=== PATIENT | male | born 1975 | race Caucasian/White ===

== ENCOUNTER 2025-02-15 15:02 | Emergency (ER) | payer OTHER, SELFPAY ==
--- NOTE | ~2025-02-15 | XR_ITS ---
HISTORY: dorsal tarsal pain/swelling- dropped mower onto foot COMPARISON: None TECHNIQUE: 3 views of the left foot were performed FINDINGS: Avulsion fracture over the dorsal margin of the metatarsal/cuneiform border (at the Lisfranc joint) w ith overlying soft tissue swelling. No significant degenerative disease is noted. The base of the fifth metatarsal is intact. No calcaneal spur is noted. IMPRESSION: 3 mm avulsion fracture of the dorsal margin of the metatarsal/cuneiform border (at the L isfranc joint) with overlying soft tissue swelling. Reviewed, dictated and finalized at location A. IMPRESSION: 3 mm avulsion fracture of the dorsal margin of the metatarsal/cune iform border (at the Lisfranc joint) with overlying soft tissue swelling.
--- NOTE | 2025-02-15 15:06 | ED.LOWEXIN ---
HPI - Extremity Injury (Lower) General Chief Complaint: Extremity Injury, Lower Stated Complaint: left foot injury Time Seen by Provider: 02/15/25 15:06 Source: patient Mode of arrival: ambulatory Limitations: no limitations History of Present Illness HPI Narrative: Mayur is a 49-year-old male patient presenting to the clinic today with complaints of left foot injury x2 weeks. He reports he was cleaning out a push mower and and was setting the more upright when thumb over landed on top of his left foot. Has been having pain and swelling to the left foot. States the pain was initially to the dorsal foot but is now into the arch and heel of his foot and around his ankle. Has not taken any medications for his symptoms. Rates pain 01/12 currently Related Data Home Medications ?Medication ?Instructions ?Recorded ?Confirmed ?Last Taken ?Type acamprosate 333 mg tablet,delayed mg PO 02/15/25 Unknown History release escitalopram oxalate 20 mg tablet mg 02/15/25 Unknown History naltrexone microspheres 380 mg mg IM 02/15/25 Unknown History intramuscular suspension,extended release (Vivitrol) Allergies Allergy/AdvReac Type Severity Reaction Status Date / Time No Known Allergies Allergy Verified 02/15/25 15:11 Review of Systems Review of Systems: Pertinent positives per HPI. Patient denies any fever, chills, rash, headache, visual changes, dizziness, cough, shortness of breath, chest pain, palpitations, nausea, vomiting, diarrhea, constipation, abdominal pain, or any urinary issues. PMFSH Comments At the time of my signature, I reviewed and agree with the nursing past medical, surgical, social, and family history. There is no relevant family history pertinent to the patient complaint. Exam Narrative: General: Well-developed, well nourished, in no apparent distress Head: Normocephalic, atraumatic. Cardio: Regular rate and rhythm, s1 and s2 normal, no murmur appreciated. Resp: Clear to auscultation bilaterally, no rhonchi, rales, wheezing or rubs. Musculoskeletal: No deformity, left foot swelling when compared to the right, tenderness to palpation over the dorsal foot and as well as over the arch and heel of the foot and pain to the lower medial ankle, grossly normal range of motion, muscle strength strong and equal, peripheral pulse strong, no edema, no cyanosis, normal gait and station Course Course Emergency Course: Portions of this record may have been created with voice recognition software. Level of Care: Express Care Visit Vital Signs Vital signs: Vital Signs Temperature 36.6 C 02/15/25 15:09 Pulse Rate 97 02/15/25 15:09 Respiratory Rate 16 02/15/25 15:09 Blood Pressure 121/75 02/15/25 15:09 Pulse Oximetry 99 02/15/25 15:09 Oxygen Delivery Room Air 02/15/25 15:09 Temperature 36.6 C 02/15/25 15:09 Pulse Rate 97 02/15/25 15:09 Respiratory Rate 16 02/15/25 15:09 Blood Pressure 121/75 02/15/25 15:09 Pulse Oximetry 99 02/15/25 15:09 Oxygen Delivery Room Air 02/15/25 15:09 Vital signs reviewed MDM - Extremity Injury (Lower) MDM Narrative Medical decision making narrative: At the time of visit patient is resting comfortably on the exam table. Patient appears to be nontoxic. Complaints of left foot injury x2 weeks. He reports he was cleaning out a push mower and and was setting the more upright when thumb over landed on top of his left foot. Has been having pain and swelling to the left foot. States the pain was initially to the dorsal foot but is now into the arch and heel of his foot and around his ankle. Has not taken any medications for his symptoms. Rates pain 7/10 currently. Exam patient has left foot swelling when compared to the right, tenderness to palpation over the dorsal foot and as well as over the arch and heel of the foot and pain to the lower medial ankle. X-ray of the left foot was ordered Diagnostics: X-ray of the left foot was performed and shows a 3 mm avulsion fracture of the dorsal margin of the metatarsal/cuneiform blood with overlying soft tissue swelling. Plan: Patient has avulsion fracture to the metatarsal of the left foot. Postop shoe and Amadou wrap was ordered. Sensation, circulation, motion within normal limits after application of the Amadou wrap. Will have patient follow-up with Dr. Kirby. Supportive measures were discussed with the patient and they voiced understanding discharge instructions and agrees to treatment plan. Return precautions reviewed Differential Diagnosis Differential diagnosis: Likely fracture of toe and other (Foot fracture) Discharge Plan Discharge Clinical Impression: Avulsion fracture of metatarsal bone Qualifiers: Encounter type: initial encounter Fracture type: closed Laterality: left Qualified Code(s): S92.302A - Fracture of unspecified metatarsal bone(s), left foot, initial encounter for closed fracture Patient Disposition: Home Condition: Stable Instructions: Antibiotic Form, Foot Fracture in Adults (ED) Additional Instructions: X-ray shows a 3 mm avulsion fracture of the dorsal margin of the meta tarsal/cuneiform border with overlying soft tissue swelling. Rest, ice, elevate, wear Amadou wrap, and postop shoe as directed Tylenol/motrin for pain as discussed. Gradually bear weight No running or sports until healed. Follow up with your PCP if symptoms persist more than 1 week. Follow-up with Dr. [id number] office tomorrow to schedule appointment Patient Language: Greenlandic Prescriptions: No Action escitalopram oxalate 20 mg tablet acamprosate 333 mg tablet,delayed release (DR/EC) PO Vivitrol 380 mg suspension,extended rel recon IM Follow-up/Referrals: Chintan Coel MD [Primary Care Provider] - Nuno Larry MD [Physician] - 1 Day (Left foot- 3 mm avulsion fracture of the dorsal margin of the metatarsal/cuneiform border at the Lisfranc joint with overlying soft tissue swelling) Time of Disposition: 15:41 Quality NIHSS Nursing Documentation ED NIHSS nursing documentation: reviewed/agree
[2025-02-15 15:09] VITALS: BP 121/75; PULSE 97; RESP 16; TEMP 36.6; O2SAT 99
--- OUTSIDE RECORDS SUMMARY | 2025-02-15 15:09 | XMS_ITS | Clinical Summary ---
Author Organization [facility] Address [address] [place] [address] Phone Care Team Providers Care Community Service Technician Name Role Phone Chintan Cole MD Primary Care Provider [phone] Allergies No known active allergies Medications * This document contains information received from the source organization and may not represent a complete record from that organization. hydrOXYzine (ATARAX) 50 MG Tablet Take 50 mg by mouth every 6 hours as needed for Anxiety. Active escitalopram (LEXAPRO) 20 MG TabletIndicatio ns:Generalized Anxiety Disorder Take 1 Tablet by mouth daily. Indications: Generalized Anxiety Disorder 90 Tablet 5 Active folic acid (FOLVITE) 1 MG Tablet Take 1 Tablet by mouth daily. 30 Tablet 5 Active methocarbamol (ROBAXIN) 750 MG Tablet Take 1 Tablet by mouth 3 times daily as needed for Other (For muscle aches). 90 Tablet 5 Active nicotine polacrilex (NICORETTE) 2 MG Gum Take 1 Each by mouth every 4 hours as needed for Smoking cessation. 100 gum 5 Active chlordiazePOXID E (LIBRIUM) 10 MG CapsuleIndicati ons:Anxiety and depression Take 1 Capsule by mouth 3 times daily as needed for Withdrawal or Anxiety. 90 Capsule 5 Active Active Problems Problem Noted Date Diagnosed Date Tobacco dependence 12/02/2024 Alcohol withdrawal 11/29/2024 Alcohol dependence 11/19/2023 Seizure 11/19/2023 Insomnia 11/19/2023 Anxiety 11/19/2023 Depression 11/19/2023 Alcohol related seizure Overview (11/29/2024): x1 Tobacco abuse Anxiety and depression Resolved Problems Problem Noted Date Diagnosed Date Resolved Date Alcohol withdrawal syndrome with complication 11/19/19 24 11/22/2023 Hyperbilirubinemia 11/19/2023 Transaminitis 11/19/2023 11/22/2023 Hyponatremia 11/19/2023 11/22/2023 Encounters * This document contains information received from the source organization and may not represent a complete record from that organization. Date Type Department Care Team Description 12/19/2024 Travel 12/13/2024 Transcribe Orders [facility] [address] [place] [address] Chintan Cole MD Abnormal LFTs (liver function tests) (Primary Dx) 11/29/2024 Travel from Last 3 Months Family History Medical History Relation Name Comments No Known Problems Father Arthritis Mother Diabetes Mother Hypertension Mother Relation Name Status Comments Father Alive Mother Alive Social History Tobacco Use Types Packs/Day Years Used Date Smoking Tobacco: Every Day Cigarettes 1 35.2 Started: 12/09/1989 Smokeless Tobacco: Former Chew Tobacco Cessation:Ready to Q uit: Not Asked; Counseling Given: Not Answered Alcohol Use Standard Drinks/Week Comments Yes 125 (1 standard drink = 0.6 oz p ure alcohol) last drink 11/29 AM [facility] Utilities Answer Date Recorded In the past 12 months has [employer], gas, oil, or water [employer] threatened to shut off services in your home? Patient declined 11/29/2024 Social Connection and Isolation Panel Answer Date Recorded In a typical week, how many times do you talk on the phone with family, friends, or neighbors? Patient declined 11/29/2024 How often do you get togethe r with friends or relatives? Patient declined 11/29/2024 How often do you attend muslim or church serv ices? Patient declined 11/29/2024 Do you belong to any clubs o r organizations such as muslim groups, unions, fraternal or athletic groups, or school groups? Patient declined 11/29/2024 How often do you attend meet ings of the clubs or organizations you belong to? Patient declined 11/29/2024 Are you , , di vorced, , never , or living with a partner? Patient declined 11/29/2024 AUDIT-C Answer Date Recorded Q1: How often do you have a drink containing alc ohol? Patient declined 11/29/2024 Q2: How many drinks containi ng alcohol do you have on a typical day when you are drinking? Patient declined 11/29/2024 Q3: How often do you have si x or more drinks on one occasion? Patient declined 11/29/2024 Overall Financial Resource Strain (CARDIA) Answe r Date Recorded How hard is it for you to pa y for the very basics like food, housing, medical care, and heating? Patient declined 11/29/2024 [facility] - Occupational Stress Questionnaire Answer Date Recorded Do you feel stress - tense, restless, nervous, or anxious, or unable to sleep at night because your mind is troubled all the time - these days? Patient declined 11/29/2024 Exercise Vital Sign Answer Date Recorde d On average, how many days pe r week do you engage in moderate to strenuous exercise (like a brisk walk)? Patient declined On average, how many minutes do you engage in exercise at this level? Patient declined 11/29/2024 Hunger Vital Sign Answer Date Recorded Within the past 12 months, y ou worried that your food would run out before you got the money to buy more. Patient declined Within the past 12 months, t he food you bought just didn't last and you didn't have money to get more. Patient declined PRAPARE - Transportation Answer Date Re corded In the past 12 months, has l ack of transportation kept you from medical appointments or from getting medications? Patient declined 11/29/2024 In the past 12 months, has l ack of transportation kept you from meetings, work, or from getting things needed for daily living? Patient declined 11/29/2024 Housing Stability Vital Sign Answer Jone e Recorded In the last 12 months, was t here a time when you were not able to pay the mortgage or rent on time? Yes 11/19/2023 In the last 12 months, how many places have you lived? 1 11/19/2023 In the last 12 months, was t here a time when you did not have a steady place to sleep or slept in a jail (including now)? No 11/19/2023 Housing Stability Vital Sign Answer Jone e Recorded In the last 12 months, was t here a time when you were not able to pay the mortgage or rent on time? Patient declined 11/30/19 25 In the past 12 months, how m any times have you moved where you were living? 1 11/29/2024 At any time in the past [address] [facility], were you homeless or living in a jail (including now)? Patient declined 11/29/2024 Sexually Active Control Partners Comments Yes Female Sex and Gender Information Value Date Recorded Sex Assigned at Male 11/17/2023 5:26 PM CDT Legal Sex Male 8:27 PM CDT Gender Identity Male 11/17/2023 5:26 PM CDT Sexual Orientation Not on file Last Filed Vital Signs Vital Sign Reading Time Taken Comments Blood Pressure 109/64 12/02/2024 7:23 AM CDT Pulse 69 12/02/2024 7:23 AM CDT Temperature 36.1 C (97 F) 12/02/2024 7:23 AM CDT Respiratory Rate 20 12/02/2024 7:23 AM CDT Oxygen Saturation 98% 12/02/2024 7:23 AM CDT Inhaled Oxygen Concentration - - Weight 80.7 kg (178 lb) 11/29/2024 2:26 PM CDT Height 185.4 cm (6' 1) 11/29/2024 2:26 PM CDT Body Mass Index 23.48 11/29/2024 2:26 PM CDT Plan of Treatment Health Maintenance Due Date Last Done Comments Hepatitis C Virus (HCV) Screening 1975 TdaP Immunization 1975 Hepatitis B Immunization (1 of 3 - 19+ 3-dose series) 12/22/1994 Pneumococcal Immunization Co mbined (1 of 2 - PCV) 12/22/1994 Cologuard 12/22/2020 Colonoscopy 12/22/2020 Colorectal Cancer Screening 12/22/2020 Immunochemical Fecal Occult Blood 12/22/2020 SARS-COV-2 Immunization ( - season) 2024 Influenza Immunization (#1) 2025 Respiratory Syncytial Virus (RSV) Immunization (Adult) (1 - 1-dose 75+ series) 12/22/2050 Human Papillomavirus (HPV) Immunization Aged Out No longer eligible b ased on patient's age to complete this topic Meningococcal Immunization (ACWY) Aged Out No longer eligible based on patient's age to complete this topic Rotavirus Immunization Aged Out No lo nger eligible based on patient's age to complete this topic Procedures Procedure Name Priority Date/Time Associated Diagnosis Comments RHYTHM STRIP 12/01/2024 12:00 AM CDT RHYTHM STRIP 12/01/2024 12:00 AM CDT RHYTHM STRIP 12/01/2024 12:00 AM CDT URINALYSIS (UA) MACROSCOPIC Routine 11/30/2024 2:04 PM CDT URINE DRUG SCREEN Routine 11/30/2024 2:0 4 PM CDT RHYTHM STRIP 11/30/2024 12:00 AM CDT RHYTHM STRIP 11/30/2024 12:00 AM CDT RHYTHM STRIP 11/30/2024 12:00 AM CDT EKG 12 LEAD Stat with Interpretation 11/29/2024 4:44 PM CDT GOLD TOP TUBE Routine 11/29/2024 1:38 PM CDT CBC WITH AUTO DIFFERENTIAL Routine 11/29/2024 1:38 PM CDT EXTRA TUBES Routine 11/29/2024 1:38 PM CDT AMYLASE Routine 11/29/2024 1:38 PM CDT MAGNESIUM (MG) Routine 11/29/2024 1:38 PM CDT PHOSPHORUS (PO4) Routine 11/29/2024 1:38 PM CDT LIPASE Routine 11/29/2024 1:38 PM CDT ETHYL ALCOHOL (ETHANOL) Routine 11/29/2024 1:38 PM CDT PROTIME (PT) (PROTHROMBIN TIME) Routine 11/29/2024 1:38 PM CDT CMP (COMPREHENSIVE METABOLIC PANEL) Routine 11/29/2024 1:38 PM CDT COMPLETE BLOOD COUNT (CBC) WITH DIFF Routine 11/29/2024 1:38 PM CDT EKG SCAN 11/29/2024 12:00 AM CDT RHYTHM STRIP 11/29/2024 12:00 AM CDT RHYTHM STRIP 11/29/2024 12:00 AM CDT from Last 3 Months Results * RHYTHM STRIP (12/01/2024 12:00 AM CDT) Only the most recent of8 resultswithin the time period is included. 12/01/2024 us Provider Scan IMG ECG ORDERABLES Final Result RESULTING AGENCY * (ABNORMAL) URINALYSIS (UA) MACROSCOPIC (11/30/2024 2:04 PM CDT) SPECIFIC GRAVITY 1.015 1.003 - 1.030 11/30/2024 2:34 PM CDT [facility] URINE PH 7.0 5.0 - 9.0 11/30/2024 2:34 PM CDT [facility] WBC ESTERASE Negative Negative 11/30/2024 2:34 PM CDT [facility] NITRITE Negative Negative 11/30/2024 2:34 PM CDT [facility] PROTEIN, RANDOM URINE 15 mg/dL(A) Negative 11/30/2024 2:34 PM CDT [facility] URINE GLUCOSE, QUAL Negative Negative 11/30/2024 2:34 PM CDT [facility] URINE KETONES 5 mg/dL(A) Negative 11/30/2024 2:34 PM CDT [facility] UROBILINOGEN Normal Normal mg/dL 11/30/2024 2:34 PM CDT [facility] URINE BLOOD Negative Negative aguilar/ul 11/30/2024 2:34 PM CDT [facility] URINALYSIS COLOR Dark Yellow 025 2:34 PM CDT [facility] URINALYSIS CLARITY Clear 11/30/2024 2:34 PM CDT [facility] Urine Non-Phlebotomy Collection / Unknown 11/30/2024 2:04 PM CDT 11/30/2024 2:31 PM CDT us Jose Lemus FRONT OF HOUSE MANAGER, MANUFACTURING TEAM LEADER URINE ORDERABLES Final Result [facility] [address] [place] [address] * (ABNORMAL) URINE DRUG SCREEN (11/30/2024 2:04 PM CDT) UR AMPHETAMINE NON DETECTED NON DETECTED 11/30/2024 2:45 PM CDT [facility] Comment: FOR MEDICAL USE ONLY. CUTOFF CONCENTRATION FOR DETECTED RESULT: AMPHETAMINE: 500 NG/ML UR BENZODIAZEPINES DETECTED(A) NON DETECTED 11/30/2024 2:45 PM CDT [facility] Comment: FOR MEDICAL USE ONLY. CUTOFF CONCENTRATION FOR DETECTED RESULT: BENZODIAZAPINE: 200 NG/ML UR COCAINE METABOLITE NON DETECTED NON DETECTED 11/30/2024 2:45 PM CDT [facility] Comment: FOR MEDICAL USE ONLY. CUTOFF CONCENTRATION FOR DETECTED RESULT: COCAINE: 150 NG/ML UR OPIATES NON DETECTED NON DETECTED 11/30/2024 2:45 PM CDT [facility] Comment: FOR MEDICAL USE ONLY. CUTOFF CONCENTRATION FOR DETECTED RESULT: OPIATES: 300 NG/ML UR PHENCYCLIDINE NON DETECTED NON DETECTED 11/30/2024 2:45 PM CDT [facility] Comment: FOR MEDICAL USE ONLY. CUTOFF CONCENTRATION FOR DETECTED RESULT: PCP: 25 NG/ML UR CANNABINOID DETECTED(A) NON DETECTED 11/30/2024 2:45 PM CDT [facility] Comment: FOR MEDICAL USE ONLY. CUTOFF CONCENTRATION FOR DETECTED RESULT: THC (MARIJUANA): 50 NG/ML UR BARBITURATE NON DETECTED NON DETECTED 11/30/2024 2:45 PM CDT [facility] Comment: FOR MEDICAL USE ONLY. CUTOFF CONCENTRATION FOR DETECTED RESULT: BARBITUATES: 200 NG/ML UR FENTANYL NON DETECTED NON DETECTED 11/30/2024 2:45 PM CDT [facility] Comment: FOR MEDICAL USE ONLY. CUTOFF CONCENTRATION FOR DETECTED RESULT: FENTANYL: 1.0 NG/ML Urine Non-Phlebotomy Collection / Unknown 11/30/2024 2:04 PM CDT 11/30/2024 2:31 PM CDT us Jose Lemus APRN, CNP URINE ORDERABLES Final Result Performing Organization Address [facility] Co de Phone Number [facility] [address] [place] [address] * EKG 12 LEAD (11/29/2024 4:44 PM CDT) Ventricular Rate 75 BPM EXTERNAL EKG Atrial Rate 75 BPM EXTERNAL EKG P-R Interval 126 ms EXTERNAL EKG QRS Duration 88 ms EXTERNAL EKG Q-T Duration 406 ms EXTERNAL EKG QTC CALCULATION 453 ms EXTERNAL EKG P [place] 59 degrees EXTERNAL EKG R [place] 30 degrees EXTERNAL EKG T [place] 57 degrees EXTERNAL EKG 11/29/2024 4:44 PM CDT Impressions EXTERNAL EKG - 12/05/2024 10:54 PM CDT Normal sinus rhythm Low voltage QRS Borderline ECG No previous ECGs available Confirmed by Yoselyn Rousseau ([id number]) on 12/05/2024 10:54:35 PM Narrative Procedure Note Yoselyn Rousseau DO - 12/05/2024 IMPRESSION: Normal sinus rhythm Low voltage QRS Borderline ECG No previous ECGs available Confirmed by Yoselyn Rousseau ([id number]) on 12/05/2024 10:54:35 PM us Jose Lemus APRN, RAJWINDER IMG ECG ORDERABLES [place] l Result EXTERNAL EKG * GOLD TOP TUBE (11/29/2024 1:38 PM CDT) Blood No Phlebotomy Charged / Unknown 11/29/2024 1:38 PM CDT 11/29/2024 1:44 PM CDT us Jeanette Bo MD CHEMISTRY ORDERABLES Final Res ult [facility] [address] [place] [address] * (ABNORMAL) CBC WITH AUTO DIFFERENTIAL (11/29/2024 1:38 PM CDT) WBC 8.92 4.00 - 12.00 10(3)/mcL 11/29/2024 2:04 PM CDT [facility] RBC 5.23 4.40 - 5.80 10(6)/mcL 11/29/2024 2:04 PM CDT [facility] HEMOGLOBIN (HGB) 16.3 13.0 - 16.5 g/dL 11/29/2024 2:04 PM CDT [facility] HEMATOCRIT (HCT) 47.3 38.0 - 50.0 % 11/29/2024 2:04 PM CDT [facility] MCV 90.4 82.0 - 96.0 fL 11/29/2024 2:04 PM CDT [facility] MCH 31.2 26.0 - 32.0 pg 11/29/2024 2:04 PM CDT [facility] MCHC 34.5 31.0 - 36.0 g/dL 11/29/2024 2:04 PM CDT [facility] PLATELET COUNT 243 140 - 440 10(3)/mcL 11/29/2024 2:04 PM CDT [facility] RDW 12.5 11.8 - 15.5 % 11/29/2024 2:04 PM CDT [facility] MPV 9.1 8.0 - 12.6 fL 11/29/2024 2:04 PM CDT [facility] NEUTROPHILS 68.9(H) 40.0 - 68.0 % 11/29/2024 2:04 PM CDT [facility] LYMPHOCYTES 19.5 19.0 - 49.0 % 11/29/2024 2:04 PM CDT [facility] MONOCYTES 9.8 3.0 - 13.0 % 11/29/2024 2:04 PM CDT [facility] EOSINOPHILS 0.9 0.0 - 8.0 % 11/29/2024 2:04 PM CDT [facility] BASOPHILS 0.9 0.0 - 1.0 % 11/29/2024 2:04 PM CDT [facility] ABSOLUTE NEUTROPHILS 6.15(H) 1.40 - 5.30 10(3)/mcL 11/29/2024 2:04 PM CDT [facility] ABSOLUTE LYMPHOCYTES 1.74 0.90 - 3.30 10(3)/[facility] 11/29/2024 2:04 PM CDT [facility] ABSOLUTE MONOCYTES 0.87 0.10 - 0.90 10(3)/[facility] 11/29/2024 2:04 PM CDT [facility] ABSOLUTE EOSINOPHIL 0.08 0.00 - 0.50 10(3)/[facility] 11/29/2024 2:04 PM CDT [facility] ABSOLUTE BASOPHILS 0.08 0.00 - 0.10 10(3)/[facility] 11/29/2024 2:04 PM CDT [facility] NRBC PER 100 WBC 0 11/30/19 2:04 PM CDT [facility] Blood Venipuncture / Unknown 11/29/2024 1:38 PM CDT 11/29/2024 1:42 PM CDT us Jose Lemus FRONT OF HOUSE MANAGER, MANUFACTURING TEAM LEADER HEMATOLOGY ORDERABLES F inal Result [facility] [address] [place] [address] * PROTIME (PT) (PROTHROMBIN TIME) (11/29/2024 1:38 PM CDT) PROTIME-PATIENT 13.0 11.6 - 14.8 sec 11/29/2024 2:03 PM CDT [facility] INR 1.0 0.9 - 1.2 11/29/2024 2:03 PM CDT [facility] Comment: Therapeutic Ranges INR = 2.0-3.0: Venous thromb, atrial fib, pul embolism, tissue heart valve, ami. INR = 2.5-3.5: Mechanical heart valve Critical value for INR is >/= 4.5 Blood Venipuncture / Unknown 11/29/2024 1:38 PM CDT 11/29/2024 1:42 PM CDT Jose Lemus APRN, MANUFACTURING TEAM LEADER HEMATOLOGY ORDERABLES F inal Result Performing Organization Address City/[facility]/ZIP Co de Phone Number [facility] [address] [place] [address] * PHOSPHORUS (PO4) (11/29/2024 1:38 PM CDT) [facility] PHOSPHORUS 3.4 2.5 - 4.5 mg/dL 11/29/2024 2:09 PM CDT [facility] Blood Venipuncture / Unknown 11/29/2024 1:38 PM CDT 11/29/2024 1:42 PM CDT Jose Lemus APRN, MANUFACTURING TEAM LEADER CHEMISTRY ORDERABLES Fi nal Result [facility] [address] [place] [address] * MAGNESIUM (MG) (11/29/2024 1:38 PM CDT) Pathologist [facility] MAGNESIUM 2.1 1.6 - 2.6 mg/dL 11/29/2024 2:09 PM CDT [facility] Blood Venipuncture / Unknown 11/29/2024 1:38 PM CDT 11/29/2024 1:42 PM CDT Jose Lemus APRN, MANUFACTURING TEAM LEADER CHEMISTRY ORDERABLES Fi nal Result Performing Organization Address City/[facility]/ZIP Co de Phone Number [facility] [address] [place] [address] * LIPASE (11/29/2024 1:38 PM CDT) LIPASE 68 8 - 78 U/L 11/29/2024 2:09 PM CDT [facility] Blood Venipuncture / Unknown 11/29/2024 1:38 PM CDT 11/29/2024 1:42 PM CDT Jose Lemus APRN, MANUFACTURING TEAM LEADER CHEMISTRY ORDERABLES Fi nal Result Performing Organization Address [facility] Co de Phone Number [facility] [address] [place] [address] * (ABNORMAL) ETHYL ALCOHOL (ETHANOL) (11/29/2024 1:38 PM CDT) ETHANOL 322(H) <10 mg/dL 11/29/2024 2:09 PM CDT [facility] Blood Venipuncture / Unknown 11/29/2024 1:38 PM CDT 11/29/2024 1:42 PM CDT Jose Lemus APRN, MANUFACTURING TEAM LEADER CHEMISTRY ORDERABLES Fi nal Result Performing Organization Address City/[facility] Co de Phone Number [facility] [address] [place] [address] * (ABNORMAL) CMP (COMPREHENSIVE METABOLIC PANEL) (11/29/2024 1:38 PM CDT) SODIUM 140 136 - 145 mmol/L 11/29/2024 2:09 PM CDT [facility] POTASSIUM 4.2 3.5 - 5.1 mmol/L 11/29/2024 2:09 PM CDT [facility] CHLORIDE 105 98 - 107 mmol/L 11/29/2024 2:09 PM T [facility] CO2, VENOUS 25 22 - 30 mmol/L 11/29/2024 2:09 PM CDT [facility] ANION GAP 14.2 <18.0 mmol/L 11/29/2024 2:09 PM CDT [facility] GLUCOSE 99 70 - 99 mg/dL 11/29/2024 2:09 PM T [facility] BUN 11 9 - 21 mg/dL 11/29/2024 2:09 PM T [facility] CREATININE, BLOOD 0.85 0.70 - 1.30 mg/dL 11/29/2024 2:09 PM CDT [facility] BUN/CREATININE RATIO 13 12 - 20 ratio 11/29/2024 2:09 PM T [facility] TOTAL PROTEIN 6.0 6.0 - 8.0 g/dL 11/29/2024 2:09 PM T [facility] ALBUMIN 3.3(L) 3.5 - 5.0 g/dL 11/29/2024 2:09 PM T [facility] A/G RATIO 1.2 1.0 - 2.2 11/29/2024 2:09 PM CDT [facility] CALCIUM 7.7(L) 8.7 - 10.5 mg/dL 11/29/2024 2:09 PM T [facility] T BILI 0.6 0.2 - 1.2 mg/dL 11/29/2024 2:09 PM CDT [facility] SGOT (AST) 46(H) <43 U/L 11/29/2024 2:09 PM CDT [facility] SGPT (ALT) 26 <56 U/L 11/29/2024 2:09 PM CDT [facility] ALKALINE PHOSPHATASE 89 40 - 150 U/L 11/29/2024 2:09 PM CDT [facility] GFR, ESTIMATED >60 >=60 11/29/2024 2:09 PM CDT [facility] Comment: Creatinine Clearance is the preferred criteria for selecting drug dose adjustments in renally impaired patients. The GFR is provided as additional pertinent clinical information. GFR is reported in mL/min/1.73 sq m. Calculation based on the Chronic Kidney Disease Epidemiology Collaboration (CKD- EPI) equation refit without adjustment for race. GFR, EST. >60 >=60 025 2:09 PM CDT [facility] GFR, EST. NONAFRICAN >60 >=60 11/29/2024 2:09 PM CDT [facility] Blood Venipuncture / Unknown 11/29/2024 1:38 PM CDT 11/29/2024 1:42 PM CDT us Jose Lemus APRN, MANUFACTURING TEAM LEADER CHEMISTRY ORDERABLES Fi nal Result [facility] [address] [place] [address] * AMYLASE (11/29/2024 1:38 PM CDT) AMYLASE 27 25 - 125 U/L 11/29/2024 2:09 PM CDT [facility] Blood Venipuncture / Unknown 11/29/2024 1:38 PM CDT 11/29/2024 1:42 PM CDT Jose Lemus APRN, MANUFACTURING TEAM LEADER CHEMISTRY ORDERABLES Fi nal Result [facility] [address] [place] [address] * EKG SCAN (11/29/2024 12:00 AM CDT) 11/29/2024 us Provider Scan IMG ECG ORDERABLES Final Result RESULTING AGENCY from Last 3 Months Insurance MEDICAID [employer] Advance Directives * Full Code (Latest Code Status on File) Date Activated Date Inactivated Comments 12/01/2024 5:47 PM CPR-Full Treat ment: FULL ARREST: Attempt Resuscitation/CPR wit intubation and mechanical ventilation. PRE-ARREST: Use entire range of life support measures to stabilize the patient. * Full Code Date Activated Date Inactivated Comments 11/19/2023 4:27 PM 11/22/2023 3:01 PM CPR-Full Russ atment: FULL ARREST: Attempt Resuscitation/CPR wit intubation and mechanical ventilation. PRE-ARREST: Use entire range of life support measures to stabilize the patient. Care Teams Community Service Technician Relationship Specialty Start Date End Date Chintan Cole MD [address] [place] [address] [place] [address] PCP - General Internal Medicine 11/29/24
--- OUTSIDE RECORDS SUMMARY | 2025-02-15 15:09 | XMS_ITS | Clinical Summary ---
Author Organization [facility] Address [address] [place] [address] Care Team Providers Care Peoplesoft Crm Developer Name Role Phone No, Physician Primary Care Provider [phone] Allergies No known active allergies Medications chlordiazePOXID E (LIBRIUM) 10 mg capsuleIndicati ons:Alcohol Withdrawal Syndrome Take 1 capsule (10 mg total) by mouth 3 (three) times a day as needed for anxiety for up to 15 days 30 capsule 04/07/2023 Active Social History Tobacco Use Types Packs/Day Years Used Date Smoking Tobacco: Never Assessed Personal Safety Answer Date Recorded Getting School Help Needed Not on file 04/26 Sex and Gender Information Value Date Recorded Sex Assigned at Not on file Legal Sex Male 6:15 PM CDT Gender Identity Not on file Sexual Orientation Not on file Last Filed Vital Signs Vital Sign Reading Time Taken Comments Blood Pressure 136/88 04/07/2023 8:30 PM CDT Pulse 70 04/07/2023 8:30 PM CDT Temperature 36.7 C (98.1 F) 04/07/2023 6:22 PM CDT Respiratory Rate 16 04/07/2023 8:30 PM CDT Oxygen Saturation 97% 04/07/2023 8:30 PM CDT Inhaled Oxygen Concentration - - Weight 68.5 kg (151 lb) 04/07/2023 6:22 PM CDT Height 185.4 cm (6' 1) 04/07/2023 6:22 PM CDT Body Mass Index 19.92 04/07/2023 6:22 PM CDT Plan of Treatment Health Maintenance Due Date Last Done Comments Colon Cancer Screening-Colonoscopy 1975 Depression Screening 1975 Hepatitis C Screening 1975 DTaP/Tdap/Td Vaccine (1 - Tdap) 12/22/1986 Hepatitis B Screening 12/22/1993 Regular Well Visit/Exam 18-64 12/22/1993 Influenza Vaccine (#1) 2025 Pneumococcal vaccine <65 Aged Out No longer eligible based on patient's age to complete this topic Insurance [facility] Care Teams Peoplesoft Crm Developer Relationship Specialty Start Date End Date No, Physician PCP - General 04/07/23
--- OUTSIDE RECORDS SUMMARY | 2025-02-15 15:09 | XMS_ITS | Patient Health Record ---
Author Organization [facility] Address [address] [place] [address] Care Team Providers Care Cleaner Assistant Name Role Phone Sade Bragg Primary Care Provider Chintan Cole Unavailable [phone] Samuel Rouse Unavailable [phone] [place] Unavailable [phone] Brunilda Clay Unavailable [phone] Allergies No Known Allergies Results Component Value Reference Range Notes 14 Panel Urine Drug Screen Reviewed date:02/10/2025 01:38:14 PM Interpretation: Performing Lab: Notes/Report: THC POS PHYLLIS neg MOP (OPI) neg AMP neg MET neg BAR neg BZO neg MDMA neg MTD neg OXY neg PCP neg BUP neg TCA neg FTY neg 12 Panel Urine Drug Screen Reviewed date:09/21/2024 10:18:43 AM Interpretation: Performing Lab: Notes/Report: THC POS PHYLLIS neg MOP (OPI) neg AMP neg MET neg BAR neg BZO neg MDMA neg MTD neg OXY neg PCP neg BUP neg 12 Panel Urine Drug Screen Reviewed date:06/27/2024 01:33:41 PM Interpretation: Performing Lab: Notes/Report: THC pos PHYLLIS neg MOP (OPI) neg AMP neg MET neg BAR neg BZO neg MDMA neg MTD neg OXY neg PCP neg BUP neg 12 Panel Urine Drug Screen Reviewed date:05/12/2024 01:32:28 PM Interpretation: Performing Lab: Notes/Report: THC pos PHYLLIS neg MOP (OPI) neg AMP neg MET neg BAR neg BZO neg MDMA neg MTD neg OXY neg PCP neg BUP neg 12 Panel Urine Drug Screen Reviewed date:02/18/2024 01:58:48 PM Interpretation: Performing Lab: Notes/Report: THC POS PHYLLIS neg MOP (OPI) neg AMP neg MET neg BAR neg BZO neg MDMA neg MTD neg OXY neg PCP neg BUP neg 12 Panel Urine Drug Screen Reviewed date:03/17/2024 02:40:20 PM Interpretation: Performing Lab: Notes/Report: THC POS PHYLLIS neg MOP (OPI) neg AMP neg MET neg BAR neg BZO neg MDMA neg MTD neg OXY neg PCP neg BUP neg 12 Panel Urine Drug Screen Reviewed date:08/25/2024 02:38:17 PM Interpretation: Performing Lab: Notes/Report: THC POS PHYLLIS NEG MOP (OPI) NEG AMP NEG MET NEG BAR NEG BZO NEG MDMA NEG MTD NEG OXY NEG PCP NEG BUP NEG 12 Panel Urine Drug Screen Reviewed date:10/20/2024 11:36:28 AM Interpretation: Performing Lab: Notes/Report: THC POS PHYLLIS neg MOP (OPI) neg AMP neg MET neg BAR neg BZO neg MDMA neg MTD neg OXY neg PCP neg BUP neg Ultrasound : Right Upper Quan drant Reviewed date:12/26/2024 02:07:25 PM Interpretation: Performing Lab: Notes/Report: 12 Panel Urine Drug Screen Reviewed date:05/09/2024 02:15:32 PM Interpretation: Performing Lab: Notes/Report: THC POS PHYLLIS neg MOP (OPI) neg AMP neg MET neg BAR neg BZO neg MDMA neg MTD neg OXY neg PCP neg BUP neg 12 Panel Urine Drug Screen Reviewed date:12/02/2024 02:35:03 PM Interpretation: Performing Lab: Notes/Report: THC POS PHYLLIS neg MOP (OPI) neg AMP neg MET neg BAR neg BZO POS MDMA neg MTD neg OXY neg PCP neg BUP neg Reason For Referral Reason DUAL DX WITH DEPRESS ION AND AUD, WAS SEEING CARLOS IN THE PAST Diagnosis 1 Depressive disorder (F32.9) Referral Organization [facility] Referring Provider First Name Pili Referring Provider Last Name Nithin pompa Referring Provider Speciality [facility] counseling Referred Provider [facility] Clinical Notes [place] 10/25/2024 03:18:22 PM >HN called the client to discuss the referral from Dr. Cole. Client stated that he was not interested in starting therapy back up. Referral Priority Routine Reason referral for [facility] services; would also like to switch from Carlos to Nishant for therapists Diagnosis 1 Alcohol use disorder (F10.99) Referral Organization [facility] Referring Provider First Name Brunilda Referring Provider Last Name Obed Referring Provider Speciality Psychiatry Referred Provider Specialty Behavioral H [facility] Clinical Notes Rehana Luis 03:13:18 PM > Health Navigator attempted to make contact with Iggy today. Please see encounter dated 01/13/2025 for CM notes. Referral Priority Routine Medications Medication SIG (Take, Route, Frequency, Duration) Notes Start Date End Date Status Escitalopram Oxalate 20 MG 1 tablet Oral ly Once a day; Duration: 30 days Active Ketoconazole 2 % 1 application Engineering Technical Analyst ally Once a day; Duration: 14 days 12/13/2024 Active Naltrexone HCl 50 MG 1 tablet Orally Once a day; Duration: 15 days As needed for alcohol cravings Active Flaxseed Oil 1000 MG 1 capsule Orally on ce daily Active Vitamin B-1 100 MG 1 tablet Orally Once a day Active Folic Acid 1 MG 1 tablet Orally Once a day Active Multivitamin - 1 tablet Orally Once a day Active Cetirizine HCl 10 MG 1 tablet as needed Orally Once a day; Duration: 30 day(s) Active hydrOXYzine Pamoate 50 MG 1-2 capsules Orally Every 6 hours As needed anxiety Active Vivitrol 380 MG 380 mg Intramuscular every 28 days; Duration: 28 days 12/02/2024 Activ e Acamprosate Calcium 333 MG 2 tablets Ora lly three times a day; Duration: 30 days Active Social History Tobacco Use: Social History Observation Description Date Details (start date - stop date) Current Smoker 07/06/1990 - NA Sex Assigned At : Social History Observation Description Sex Assigned At Male Tobacco Control (Standard) Question Answer Notes Tobacco use: Current smoker When did you start smoking? 07/06/1990 How many cigarettes a day do you smoke? 11-20 How soon after you wake up d o you smoke your first cigarette? 6-30 minutes Are you interested in quitting? Thinking about q uitting Additional Findings: Tobacco user Modera te cigarette smoker (10-19 cigs/day) Problems Problem Type SNOMED Code ICD Code Onset Dates Problem Status W/U Status Risk Notes Problem Tobacco user (479053320) Nicotine dependence, unspecified, uncomplicated (F17.200) Active confirmed Problem Generalized anxiety disorder (90191726) Generalized anxiety disorder (F41.1) Active confirmed Problem Alcoholic fatty liver (80047189) Alcoholic fatty liver (K70.0) Active confirmed Problem Depressive disorder (14347385) Depressive disorder (F32.9) Active confirmed Problem Alcohol use disorder (8898421234) Alcohol use disorder (F10.99) Active confirmed Vital Signs Heart Rate 112 /min 02/10/2025 Temperature 98.2 degrees Fahrenheit 12/26/2024 Respiratory Rate 16 /min 02/10/2025 Oximetry 98 % 02/10/2025 Blood pressure diastolic 80 mm Hg 02/10/2025 Height 73 in 02/10/2025 Blood pressure systolic 114 mm Hg 02/10/2025 Weight 171.6 lbs 02/10/2025 BMI 22.64 kg/m2 02/10/2025 Encounters Encounter Location Date Provider Diagnosis [address] [address] 02/18/2024 Samuel Rouse Alcohol use disorder F10.99 ; Overweight (BMI 25.0-29.9) E66.3 ; Nutritional counseling Z71.3 and Nicotine dependence, unspecified, uncomplicated F17.[address] [address] 02/18/2024 [place] [address] [address] 03/17/2024 Samuel Rouse Alcohol use disorder F10.99 ; Overweight (BMI 25.0-29.9) E66.3 ; Nutritional counseling Z71.3 and Nicotine dependence, unspecified, uncomplicated F17.[address] [address] 05/09/2024 Chintan Cole Alcohol use disorder F10.[address] [address] 05/12/2024 Samuel Rouse Alcohol use disorder F10.99 ; Overweight (BMI 25.0-29.9) E66.3 ; Nutritional counseling Z71.3 and Nicotine dependence, unspecified, uncomplicated F17.[address] [address] 06/27/2024 Sade Bragg Alcohol use disorder F10.[address] [address] 08/25/2024 Sade Bragg Alcohol use disorder F10.[address] [address] 09/21/2024 Sade Szlufik Alcohol use disorder F10.99 and Nicotine dependence, unspecified, uncomplicated F17.[address] [address] 10/20/2024 Chintan Cole Alcohol use disorder F10.99 and Depressive disorder F32.9 [facility] [address], [place] [address] 12/02/2024 Brunilda Clay Alcohol use disorder F10.99 and Nicotine dependence, unspecified, uncomplicated F17.[address] [address] 12/13/2024 Chintan Cole Alcohol use disorder F10.99 ; Leg swelling M79.89 ; Abnormal liver enzymes R74.8 and Tinea cruris B35.6 [place] [address] [facility] [place] [place] [address] 12/26/2024 Chintan Cole Alcohol use disorder F10.99 and Alcoholic fatty liver K70.0 [facility] [address] [address] 01/13/2025 [place] [address] [place] [address] 02/10/2025 Chintan Cole Alcohol use disorder F10.[address] [address] 03/08/2024 Samuel Rouse [address] [place] [address] 05/02/2024 Sade Bragg [address] [place] [address] 05/09/2024 Sade Bragg Generalized anxiety disorder F41.[address] [place] [address] 10/03/2024 Chintan Cole Generalized anxiety disorder F41.[address] [place] [address] 11/30/2024 Sade Bragg [address] [place] [address] 12/05/2024 Chintan Cole [address] [address] 12/14/2024 Sade Bragg Assessments Encounter Date Diagnosis (ICD Code) Assessment Notes Treatment Notes Treatment Clinical Notes Section Notes 12/26/2024 Alcohol use disorder (ICD-10 - F10.99) 02/10/2025 Alcohol use disorder (ICD-10 - F10.99) 12/13/2024 Leg swelling (ICD-10 - M79.89) SUSPECT CIRRHOSIS DUE TO ALCHOL ABUSE. DOUBT CARDIAC, THYROID, RENAL, OR VENOUS ISSUES. DISCUSSED LOW SALT DIET, LEG ELEVATION, COMPRESSION STOCKINGS. 12/26/2024 Alcoholic fatty liver (ICD-10 - K70.0) DISCUSSED IMPORTANCE OF ABSTINENCE FROM ALCOHOL 06/27/2024 Alcohol use disorder (ICD-10 - F10.99) 08/25/2024 Alcohol use disorder (ICD-10 - F10.99) 09/21/2024 Nicotine dependence, unspecified, uncomplicated (ICD-10 - F17.200) 09/21/2024 Alcohol use disorder (ICD-10 - F10.99) 10/03/2024 Generalized anxiety disorder (ICD-10 - F41.1) 10/20/2024 Depressive disorder (ICD-10 - F32.9) PROZAC NOT HELPFUL IN THE PAST 10/20/2024 Alcohol use disorder (ICD-10 - F10.99) 12/02/2024 Nicotine dependence, unspecified, uncomplicated (ICD-10 - F17.200) 12/02/2024 Alcohol use disorder (ICD-10 - F10.99) May self-administer or be administered own oral medication per [facility] Protocols. Provided informed consent with understanding of side effects, risks and benefits as well as alternative treatments as previously discussed and with the above recommended medications ang other aspects of the treatment program. Agrees to return sooner if symptoms worsen or suicidal or homicidal ideations occur. support and education provided concerning illness and treatment plan, risks and benefits, pt verbalized understanding of the same and agreeable - presents via secure Zoom connection for MAT walk in clinic. - hospitalized earlier this weeks for detox x3 days, received Librium, IVF, MVI, Feels better now. Admits cravings with Vivitrol and Naltrexone. Prefers to continue with Vivitrol, may use Naltrexone for break through cravings, Interested in switching counselors. Referral for IPS. - continue Vivitrol for AUD, evaluate at follow up - still has naltrexone at home - [place] PDMP- no concerns - UDS-++THC, BZO- received Librium while hospitalized 03/17/2024 Alcohol use disorder (ICD-10 - F10.99) 03/17/2024 Overweight (BMI 25.0-29.9) (ICD-10 - E66.3) 05/09/2024 Alcohol use disorder (ICD-10 - F10.99) 05/09/2024 Generalized anxiety disorder (ICD-10 - F41.1) 05/12/2024 Alcohol use disorder (ICD-10 - F10.99) 05/12/2024 Overweight (BMI 25.0-29.9) (ICD-10 - E66.3) 12/13/2024 Alcohol use disorder (ICD-10 - F10.99) ENCOURAGED AA MEETINGS. HE HAS THE ELICE[facility] TO SCHEDULE VIRTUAL OR IN PERSON. 02/18/2024 Alcohol use disorder (ICD-10 - F10.99) 02/18/2024 Overweight (BMI 25.0-29.9) (ICD-10 - E66.3) 02/18/2024 Nutritional counseling (ICD-10 - Z71.3) 12/13/2024 Abnormal liver enzymes (ICD-10 - R74.8) 05/12/2024 Nutritional counseling (ICD-10 - Z71.3) 03/17/2024 Nutritional counseling (ICD-10 - Z71.3) 05/12/2024 Nicotine dependence, unspecified, uncomplicated (ICD-10 - F17.200) 12/13/2024 Tinea cruris (ICD-10 - B35.6) 02/18/2024 Nicotine dependence, unspecified, uncomplicated (ICD-10 - F17.200) 03/17/2024 Nicotine dependence, unspecified, uncomplicated (ICD-10 - F17.200) 02/18/2024 Other Provided case management services to address social determinants of health needs and reduce barriers to health care services. 06/27/2024 Other Discussed medication side effects, adverse effects, risks, benefits, as well as interactions. Encouraged non-use of alcohol. Notify provider if having a procedure that may require pain medication. Has Vivitrol alert bracelet and wallet card. Carry written information with you at all times to alert healthcare providers that you are taking Vivitrol. Recommend participation in recovery groups, counseling services. Agrees to return to office in 28 days for next injection. Contact office with any questions or concerns. 08/25/2024 Other Discussed signs and symptoms of alcohol withdrawal and when to seek emergent medical attention. Severe alcohol withdrawal can be fatal. Discussed medication side effects, adverse effects, risks, benefits, as well as interactions. Encouraged non-use of alcohol. Notify provider if having a procedure that may require pain medication. Has Vivitrol alert bracelet and wallet card. Carry written information with you at all times to alert healthcare providers that you are taking Vivitrol. Recommend participation in recovery groups, counseling services. Agrees to return to office in 28 days for next injection. Contact office with any questions or concerns. 09/21/2024 Other Discussed residential treatment programs. Discussed medication side effects, adverse effects, risks, benefits, as well as interactions. Encouraged non-use of alcohol. Notify provider if having a procedure that may require pain medication. Has Vivitrol alert bracelet and wallet card. Carry written information with you at all times to alert healthcare providers that you are taking Vivitrol. Recommend participation in recovery groups, counseling services. Agrees to return to office in 28 days for next injection. Contact office with any questions or concerns. Patient may self-administe r their own oral medications per [facility] Protocol. May not self-administe r Vivitrol. Plan Of Treatment No Information Insurance Providers Payer Name Payer Address Payer Phone Subscriber Number Group Number Insured Name Patient Relationship to Insured Coverage Start Date Coverage End Date [facility] Att Claims Department [address] [place] [address] [id number] Mayur Mast Self - patient is the insured MEDICAID [address] [address] [id number] Mayur Mast Self - patient is the insured Medications Administered Medication Instructions Date of Administration Dosage Notes Vivitrol 11/24/2023 380 mg Pt sabina well. Umer anufact by Liveermnohemi. Vivitrol 12/22/2023 380 mg Mali Mendosa 12/22/2023 01:40 PM CDT >Given Lt Gluteus, tolerated well. Vivitrol 01/21/2024 380 mg Vivitrol 02/18/2024 380 mg Pt. tolerated well. No questions/concerns at this time. Vivitrol 03/17/2024 380 mg PAMELA Ayala Step hanie N 03/17/2024 03:17:08 PM CDT >pt tolerated well with minimal discomfort observed or reported. Vivitrol 05/12/2024 380 mg Alkermes. Pt tolerated well. Reports no adverse s/s. Vivitrol 06/27/2024 380 mg Jamie Isela SANTIAGO 06/27/2024 02:46:28 PM QUALITY ASSURANCE SUPERVISOR CHASSIS > pt tolerated well. minimal discomfort observed or reported. Vivitrol 08/25/2024 380 mg Pt sabina well. Vivitrol 09/21/2024 380 mg Dinkey Dispatcher:Cydney Reece 09/21/2024 11:04:35 AM CDT >Pt tolerated well. No s&s of adverse reactions. Vivitrol 10/20/2024 380 mg Vivitrol 12/02/2024 380 mg Cydney Dumont 12/02/2024 03:40:57 PM CDT >Pt tolerated well. No s&s of adverse reaction. Vivitrol 02/10/2025 380 mg Cydney Dumont 02/10/2025 02:13:26 PM CDT > Pt tolerated well. No s&s of adverse reaction. Medical (General) History Medical History History ICD Code alcohol use disorder anxiety depression Surgical History Surgery Date(Month/Year) Hospitalization History Reason Date(Month/Year) Detox x2
== END 2025-02-15 15:56 | disposition home or self-care (01) ==
PROVIDERS: Emergency Provider Nurse Practitioner Family; PCP Internal Medicine
DX: S92.302A Fracture of unspecified metatarsal bone(s), left foot, initial encounter for closed fracture (principal); X58.XXXA Exposure to other specified factors, initial encounter
CPT/HCPCS: 73630; 99204; G0463

== ENCOUNTER 2025-02-20 13:50 | Outpatient (CLI) | payer OTHER, SELFPAY ==
--- NOTE | ~2025-02-20 | XR_ITS ---
EXAM/ PROCEDURE: XR foot LT min 3V - 02/20/2025 13:53 CDT HISTORY: 49 years old Male with M79.672 - Pain in left foot COMPARISON: None available TECHNIQUE: Four view(s) FINDINGS/ IMPRESSION: There are no fractures or dislocations.Joint spaces are within normal limits. Reviewed, dictated and finalized at location A.
--- OUTSIDE RECORDS SUMMARY | 2025-02-20 15:00 | XMS_ITS | Clinical Summary ---
Author Organization [facility] Address [address] [place] [address] Care Team Providers Care Horse Trainer Name Role Phone No, Physician Primary Care Provider [phone] Allergies No known active allergies Medications chlordiazePOXID [...] patient's age to complete this topic Insurance [facility] PL[facility] Care Teams Horse Trainer Relationship Specialty Start Date End Date No, Physician PCP - General 04/07/23
--- OUTSIDE RECORDS SUMMARY | 2025-02-20 15:00 | XMS_ITS | Clinical Summary ---
Author Organization [facility] Address [address] [place] [address] Phone Care Team Providers Care Supervisor Boiler Repair Name Role Phone Chintan Cole MD Primary Care Provider [phone] Allergies No known active allergies Medications * [...] 12/19/2024 Travel 12/13/2024 Transcribe Orders [facility] Central Scheduling [address] [place] [address] Chintan Cole MD Abnormal LFTs [...] p ure alcohol) last drink 11/29 AM [facility] Utilities Answer Date Recorded In the past 12 months has [place], gas, oil, or water [employer] threatened to shut off services in your home? Patient declined 11/29/2024 Social Connection and Isolation Panel Answer Date Recorded In a typical week, how many times do you talk on the phone with family, friends, or neighbors? Patient declined 11/29/2024 How often do you get togethe r with friends or relatives? Patient declined 11/29/2024 How often do you attend gnosticism or presybeterian serv ices? Patient declined 11/29/2024 Do you belong to any clubs o r organizations such as gnosticism groups, unions, fraternal or athletic groups, or [...] medical care, and heating? Patient declined 11/29/2024 [facility] - Occupational [...] any time in the past [facility], were you homeless or living in a [...] - 1.030 11/30/2024 2:34 PM CDT [facility] URINE PH 7.0 5.0 - 9.0 11/30/2024 2:34 PM CDT [facility] WBC ESTERASE Negative Negative 11/30/2024 2:34 PM CDT [facility] NITRITE Negative Negative 11/30/2024 2:34 PM CDT [facility] PROTEIN, RANDOM URINE 15 mg/dL(A) Negative 11/30/2024 2:34 PM CDT [facility] URINE GLUCOSE, QUAL Negative Negative 11/30/2024 2:34 PM CDT [facility] URINE KETONES 5 mg/dL(A) Negative 11/30/2024 2:34 PM CDT [facility] UROBILINOGEN Normal Normal mg/dL 11/30/2024 2:34 PM CDT [facility] URINE BLOOD Negative Negative aguilar/ul 11/30/2024 2:34 PM CDT [facility] URINALYSIS COLOR Dark Yellow 025 2:34 PM CDT [facility] URINALYSIS CLARITY Clear 11/30/2024 2:34 PM CDT [facility] Urine Non-Phlebotomy Collection / Unknown 11/30/2024 2:04 PM CDT 11/30/2024 2:31 PM CDT us Jose Lemus WET PRIMER POWDER BLENDER, GAS LEAK INSPECTOR HELPER URINE ORDERABLES Final Result [facility] [address] [place] [address] * (ABNORMAL) URINE DRUG SCREEN (11/30/2024 2:04 PM CDT) UR AMPHETAMINE NON DETECTED NON DETECTED 11/30/2024 2:45 PM CDT [facility] Comment: FOR MEDICAL USE ONLY. CUTOFF CONCENTRATION FOR DETECTED RESULT: AMPHETAMINE: 500 NG/ML UR BENZODIAZEPINES DETECTED(A) NON DETECTED 11/30/2024 2:45 PM CDT [facility] Comment: FOR MEDICAL USE ONLY. CUTOFF CONCENTRATION FOR DETECTED RESULT: BENZODIAZAPINE: 200 NG/ML UR COCAINE METABOLITE NON DETECTED NON DETECTED 11/30/2024 2:45 PM CDT [facility] Comment: FOR MEDICAL USE ONLY. CUTOFF CONCENTRATION FOR DETECTED RESULT: COCAINE: 150 NG/ML UR OPIATES NON DETECTED NON DETECTED 11/30/2024 2:45 PM CDT [facility] Comment: FOR MEDICAL USE ONLY. CUTOFF CONCENTRATION FOR DETECTED RESULT: OPIATES: 300 NG/ML UR PHENCYCLIDINE NON DETECTED NON DETECTED 11/30/2024 2:45 PM CDT [facility] Comment: FOR MEDICAL USE ONLY. CUTOFF CONCENTRATION FOR DETECTED RESULT: PCP: 25 NG/ML UR CANNABINOID DETECTED(A) NON DETECTED 11/30/2024 2:45 PM CDT [facility] Comment: FOR MEDICAL USE ONLY. CUTOFF CONCENTRATION FOR DETECTED RESULT: THC (MARIJUANA): 50 NG/ML UR BARBITURATE NON DETECTED NON DETECTED 11/30/2024 2:45 PM CDT [facility] Comment: FOR MEDICAL USE ONLY. CUTOFF CONCENTRATION FOR DETECTED RESULT: BARBITUATES: 200 NG/ML UR FENTANYL NON DETECTED NON DETECTED 11/30/2024 2:45 PM CDT [facility] Comment: FOR MEDICAL USE ONLY. CUTOFF CONCENTRATION FOR DETECTED RESULT: FENTANYL: 1.0 NG/ML Urine Non-Phlebotomy Collection / Unknown 11/30/2024 2:04 PM CDT 11/30/2024 2:31 PM CDT us Jose Lemus APRN, CNP URINE ORDERABLES Final Result Performing Organization Address [facility] Co de Phone Number [facility] [address] [place] [address] * EKG 12 LEAD (11/29/2024 4:44 PM CDT) Ventricular Rate 75 BPM EXTERNAL EKG Atrial Rate 75 BPM EXTERNAL EKG P-R Interval 126 ms EXTERNAL EKG QRS Duration 88 ms EXTERNAL EKG Q-T Duration 406 ms EXTERNAL EKG QTC CALCULATION 453 ms EXTERNAL EKG P [place] 59 degrees EXTERNAL EKG R [place] 30 degrees EXTERNAL EKG T [place] 57 degrees EXTERNAL EKG 11/29/2024 4:44 PM CDT Impressions EXTERNAL EKG - 12/05/2024 10:54 PM CDT Normal sinus rhythm Low voltage QRS Borderline ECG No previous ECGs available Confirmed by Yoselyn Rousseau ([id number]) on 12/05/2024 10:54:35 PM Narrative Procedure Note Yoselyn Rousseau DO - 12/05/2024 IMPRESSION: Normal sinus rhythm Low voltage QRS Borderline ECG No previous ECGs available Confirmed by Yoselyn Rousseau ([id number]) on 12/05/2024 10:54:35 PM us Jose Lemus APRN, RAJWINDER IMG ECG ORDERABLES [place] l Result EXTERNAL EKG * GOLD TOP TUBE (11/29/2024 1:38 PM CDT) Blood No Phlebotomy Charged / Unknown 11/29/2024 1:38 PM CDT 11/29/2024 1:44 PM CDT us Jeanette Bo MD CHEMISTRY ORDERABLES Final Res ult [facility] [address] [place] [address] * (ABNORMAL) CBC WITH AUTO DIFFERENTIAL (11/29/2024 1:38 PM CDT) WBC 8.92 4.00 - 12.00 10(3)/mcL 11/29/2024 2:04 PM CDT [facility] RBC 5.23 4.40 - 5.80 10(6)/mcL 11/29/2024 2:04 PM CDT [facility] HEMOGLOBIN (HGB) 16.3 13.0 - 16.5 g/dL 11/29/2024 2:04 PM CDT [facility] HEMATOCRIT (HCT) 47.3 38.0 - 50.0 % 11/29/2024 2:04 PM CDT [facility] MCV 90.4 82.0 - 96.0 fL 11/29/2024 2:04 PM CDT [facility] MCH 31.2 26.0 - 32.0 pg 11/29/2024 2:04 PM CDT [facility] MCHC 34.5 31.0 - 36.0 g/dL 11/29/2024 2:04 PM CDT [facility] PLATELET COUNT 243 140 - 440 10(3)/mcL 11/29/2024 2:04 PM CDT [facility] RDW 12.5 11.8 - 15.5 % 11/29/2024 2:04 PM CDT [facility] MPV 9.1 8.0 - 12.6 fL 11/29/2024 2:04 PM CDT [facility] NEUTROPHILS 68.9(H) 40.0 - 68.0 % 11/29/2024 2:04 PM CDT [facility] LYMPHOCYTES 19.5 19.0 - 49.0 % 11/29/2024 2:04 PM CDT [facility] MONOCYTES 9.8 3.0 - 13.0 % 11/29/2024 2:04 PM CDT [facility] EOSINOPHILS 0.9 0.0 - 8.0 % 11/29/2024 2:04 PM CDT [facility] BASOPHILS 0.9 0.0 - 1.0 % 11/29/2024 2:04 PM CDT [facility] ABSOLUTE NEUTROPHILS 6.15(H) 1.40 - 5.30 10(3)/mcL 11/29/2024 2:04 PM CDT [facility] ABSOLUTE LYMPHOCYTES 1.74 0.90 - 3.30 10(3)/[facility] 11/29/2024 2:04 PM CDT [facility] ABSOLUTE MONOCYTES 0.87 0.10 - 0.90 10(3)/[facility] 11/29/2024 2:04 PM CDT [facility] ABSOLUTE EOSINOPHIL 0.08 0.00 - 0.50 10(3)/[facility] 11/29/2024 2:04 PM CDT [facility] ABSOLUTE BASOPHILS 0.08 0.00 - 0.10 10(3)/[facility] 11/29/2024 2:04 PM CDT [facility] NRBC PER 100 WBC 0 11/30/19 2:04 PM CDT [facility] Blood Venipuncture / Unknown 11/29/2024 1:38 PM CDT 11/29/2024 1:42 PM CDT us Jose Lemus WET PRIMER POWDER BLENDER, GAS LEAK INSPECTOR HELPER HEMATOLOGY ORDERABLES F inal Result [facility] [address] [place] [address] * PROTIME (PT) (PROTHROMBIN TIME) (11/29/2024 1:38 PM CDT) PROTIME-PATIENT 13.0 11.6 - 14.8 sec 11/29/2024 2:03 PM CDT [facility] INR 1.0 0.9 - 1.2 11/29/2024 2:03 PM CDT [facility] Comment: Therapeutic Ranges INR = 2.0-3.0: Venous thromb, atrial fib, pul embolism, tissue heart valve, ami. INR = 2.5-3.5: Mechanical heart valve Critical value for INR is >/= 4.5 Blood Venipuncture / Unknown 11/29/2024 1:38 PM CDT 11/29/2024 1:42 PM CDT Jose Lemus APRN, GAS LEAK INSPECTOR HELPER HEMATOLOGY ORDERABLES F inal Result Performing Organization Address City/[facility]/ZIP Co de Phone Number [facility] [address] [place] [address] * PHOSPHORUS (PO4) (11/29/2024 1:38 PM CDT) [facility] PHOSPHORUS 3.4 2.5 - 4.5 mg/dL 11/29/2024 2:09 PM CDT [facility] Blood Venipuncture / Unknown 11/29/2024 1:38 PM CDT 11/29/2024 1:42 PM CDT Jose Lemus APRN, GAS LEAK INSPECTOR HELPER CHEMISTRY ORDERABLES Fi nal Result [facility] [address] [place] [address] * MAGNESIUM (MG) (11/29/2024 1:38 PM CDT) Pathologist [facility] MAGNESIUM 2.1 1.6 - 2.6 mg/dL 11/29/2024 2:09 PM CDT [facility] Blood Venipuncture / Unknown 11/29/2024 1:38 PM CDT 11/29/2024 1:42 PM CDT Jose Lemus APRN, GAS LEAK INSPECTOR HELPER CHEMISTRY ORDERABLES Fi nal Result Performing Organization Address City/[facility]/ZIP Co de Phone Number [facility] [address] [place] [address] * LIPASE (11/29/2024 1:38 PM CDT) LIPASE 68 8 - 78 U/L 11/29/2024 2:09 PM CDT [facility] Blood Venipuncture / Unknown 11/29/2024 1:38 PM CDT 11/29/2024 1:42 PM CDT Jose Lemus APRN, GAS LEAK INSPECTOR HELPER CHEMISTRY ORDERABLES Fi nal Result Performing Organization Address [facility] Co de Phone Number [facility] [address] [place] [address] * (ABNORMAL) ETHYL ALCOHOL (ETHANOL) (11/29/2024 1:38 PM CDT) ETHANOL 322(H) <10 mg/dL 11/29/2024 2:09 PM CDT [facility] Blood Venipuncture / Unknown 11/29/2024 1:38 PM CDT 11/29/2024 1:42 PM CDT Jose Lemus APRN, GAS LEAK INSPECTOR HELPER CHEMISTRY ORDERABLES Fi nal Result Performing Organization Address City/[facility] Co de Phone Number [facility] [address] [place] [address] * (ABNORMAL) CMP (COMPREHENSIVE METABOLIC PANEL) (11/29/2024 1:38 PM CDT) SODIUM 140 136 - 145 mmol/L 11/29/2024 2:09 PM CDT [facility] POTASSIUM 4.2 3.5 - 5.1 mmol/L 11/29/2024 2:09 PM CDT [facility] CHLORIDE 105 98 - 107 mmol/L 11/29/2024 2:09 PM T [facility] CO2, VENOUS 25 22 - 30 mmol/L 11/29/2024 2:09 PM CDT [facility] ANION GAP 14.2 <18.0 mmol/L 11/29/2024 2:09 PM CDT [facility] GLUCOSE 99 70 - 99 mg/dL 11/29/2024 2:09 PM T [facility] BUN 11 9 - 21 mg/dL 11/29/2024 2:09 PM T [facility] CREATININE, BLOOD 0.85 0.70 - 1.30 mg/dL 11/29/2024 2:09 PM CDT [facility] BUN/CREATININE RATIO 13 12 - 20 ratio 11/29/2024 2:09 PM T [facility] TOTAL PROTEIN 6.0 6.0 - 8.0 g/dL 11/29/2024 2:09 PM T [facility] ALBUMIN 3.3(L) 3.5 - 5.0 g/dL 11/29/2024 2:09 PM T [facility] A/G RATIO 1.2 1.0 - 2.2 11/29/2024 2:09 PM CDT [facility] CALCIUM 7.7(L) 8.7 - 10.5 mg/dL 11/29/2024 2:09 PM T [facility] T BILI 0.6 0.2 - 1.2 mg/dL 11/29/2024 2:09 PM CDT [facility] SGOT (AST) 46(H) <43 U/L 11/29/2024 2:09 PM CDT [facility] SGPT (ALT) 26 <56 U/L 11/29/2024 2:09 PM CDT [facility] ALKALINE PHOSPHATASE 89 40 - 150 U/L 11/29/2024 2:09 PM CDT [facility] GFR, ESTIMATED >60 >=60 11/29/2024 2:09 PM CDT [facility] Comment: Creatinine Clearance is the preferred criteria for selecting drug dose adjustments in renally impaired patients. The GFR is provided as additional pertinent clinical information. GFR is reported in mL/min/1.73 sq m. Calculation based on the Chronic Kidney Disease Epidemiology Collaboration (CKD- EPI) equation refit without adjustment for race. GFR, EST. >60 >=60 025 2:09 PM CDT [facility] GFR, EST. NONAFRICAN >60 >=60 11/29/2024 2:09 PM CDT [facility] Blood Venipuncture / Unknown 11/29/2024 1:38 PM CDT 11/29/2024 1:42 PM CDT us Jose Lemus APRN, GAS LEAK INSPECTOR HELPER CHEMISTRY ORDERABLES Fi nal Result [facility] [address] [place] [address] * AMYLASE (11/29/2024 1:38 PM CDT) AMYLASE 27 25 - 125 U/L 11/29/2024 2:09 PM CDT [facility] Blood Venipuncture / Unknown 11/29/2024 1:38 PM CDT 11/29/2024 1:42 PM CDT Jose Lemus APRN, GAS LEAK INSPECTOR HELPER CHEMISTRY ORDERABLES Fi nal Result [facility] [address] [place] [address] * EKG SCAN (11/29/2024 12:00 AM CDT) [...] measures to stabilize the patient. Care Teams Supervisor Boiler Repair Relationship Specialty Start Date End Date Chintan Cole MD [address] [place] [address] [place] [address] PCP - General Internal Medicine 11/29/24
--- OUTSIDE RECORDS SUMMARY | 2025-02-20 15:01 | XMS_ITS | Patient Health Record ---
Author Organization [facility] Address [address] [place] [address] Care Team Providers Care Cytology Laboratory Manager Name Role Phone Sade Bragg Primary Care Provider [phone] Chintan Cole Unavailable [phone] Samuel Rouse Unavailable [phone] [place] Unavailable [phone] Brunilda Clay Unavailable [phone] Allergies No Known Allergies Results Component Value Reference Range Notes 14 Panel Urine Drug Screen Reviewed date:02/10/2025 01:38:14 PM Interpretation: Performing Lab: Notes/Report: THC POS PHYLLIS neg MOP (OPI) neg AMP neg MET neg BAR neg BZO neg MDMA neg MTD neg OXY neg PCP neg BUP neg TCA neg FTY neg 12 Panel Urine Drug Screen Reviewed date:05/09/2024 [...] Notes/Report: 12 Panel Urine Drug Screen Reviewed date:05/12/2024 [...] Diagnosis 1 Depressive disorder (F32.9) Referral Organization [facility] Referring Provider First Name Pili Referring Provider Last Name Nithin pompa Referring Provider Speciality Mental [facility] counseling Referred Provider [facility] Clinical Notes [place] 10/25/2024 03:18:22 PM >HN called the client to discuss the referral from Dr. Cole. Client stated that he was not interested in starting therapy back up. Referral Priority Routine Reason referral for IPS, monster b services; would also like to switch from Carlos to Nishant for therapists Diagnosis 1 Alcohol use disorder (F10.99) Referral Organization [facility] Referring Provider First Name Brunilda Referring Provider Last Name Sparr Referring Provider Speciality Psychiatry Referred Provider [facility] Clinical Notes JanelleRehana Xavier 03:13:18 PM > Health Navigator attempted to make contact with Iggy today. Please see encounter dated 01/13/2025 for CM notes. Referral Priority Routine Medications Medication SIG (Take, Route, Frequency, Duration) Notes Start Date End Date Status Escitalopram Oxalate 20 MG 1 tablet Oral ly Once a day; Duration: 30 days Active Ketoconazole 2 % 1 application Solid Waste Disposal Manager ally Once a day; Duration: 14 days [...] W/U Status Risk Notes Problem Tobacco user (525228746) Nicotine dependence, unspecified, uncomplicated (F17.200) Active confirmed Problem Generalized anxiety disorder (99910526) Generalized anxiety disorder (F41.1) Active confirmed Problem Alcoholic fatty liver (91177538) Alcoholic fatty liver (K70.0) Active confirmed Problem Depressive disorder (47282824) Depressive disorder (F32.9) Active confirmed Problem Alcohol use disorder (0482031568) Alcohol use disorder (F10.99) Active confirmed Vital Signs Heart Rate 112 /min 02/10/2025 Temperature 98.2 degrees Fahrenheit 12/26/2024 Respiratory Rate 16 /min 02/10/2025 Oximetry 98 % 02/10/2025 Blood pressure diastolic 80 mm Hg 02/10/2025 Height 73 in 02/10/2025 Blood pressure systolic 114 mm Hg 02/10/2025 Weight 171.6 lbs 02/10/2025 BMI 22.64 kg/m2 02/10/2025 Encounters Encounter Location Date Provider Diagnosis [address] [address] 03/17/2024 Samuel Rouse Alcohol use disorder F10.99 ; Overweight (BMI 25.0-29.9) E66.3 ; Nutritional counseling Z71.3 and Nicotine dependence, unspecified, uncomplicated F17.[address] [address] 05/09/2024 Chintan Cole Alcohol use disorder F10.[address] [address] 05/12/2024 Samuel Rouse Alcohol use disorder F10.99 ; Overweight (BMI 25.0-29.9) E66.3 ; Nutritional counseling Z71.3 and Nicotine dependence, unspecified, uncomplicated F17.[address] [address] 06/27/2024 Sade Sheffieldlufirobinson Alcohol use disorder F10.[address] [address] 08/25/2024 Sade Sheffieldlufik Alcohol use disorder F10.[address] [address] 09/21/2024 Sade Szlufik Alcohol use disorder F10.99 and Nicotine dependence, unspecified, uncomplicated F17.[address] [address] 10/20/2024 Chintan Cole Alcohol use disorder F10.99 and Depressive disorder F32.9 [facility] [address] [place] [address] 12/02/2024 Brunilda Obed Alcohol use disorder F10.99 and Nicotine dependence, unspecified, uncomplicated F17.[address] [place] [address] 12/13/2024 Chintan Cole Alcohol use disorder F10.99 ; Leg swelling M79.89 ; Abnormal liver enzymes R74.8 and Tinea cruris B35.6 [address] [place] [address] 12/26/2024 Chintan Cole Alcohol use disorder F10.99 and Alcoholic fatty liver K70.0 [facility] [address] [address] 01/13/2025 [place] [address] [place] [address] 02/10/2025 Chintan Cole Alcohol use disorder F10.99 [address] [place] [address] 03/08/2024 Samuel Rouse [address] [place] [address] 05/02/2024 Sade Bragg [address] [place] [address] 05/09/2024 Sade Bragg Generalized anxiety disorder F41.[address] [place] [address] 10/03/2024 Chintan Cole Generalized anxiety disorder F41.1 [address] [place] [address] 11/30/2024 Sade Bragg [address] [place] [address] 12/05/2024 Chintan Cole [place] [place] [address] 12/14/2024 Sade Bragg Assessments Encounter Date Diagnosis [...] or be administered own oral medication per [place] Protocols. Provided informed consent with understanding of [...] - still has naltrexone at home - [place]- no concerns - UDS-++THC, BZO- received [...] ELICEO TO SCHEDULE VIRTUAL OR IN PERSON. 12/13/2024 Abnormal liver enzymes (ICD-10 - R74.8) 05/12/2024 Nutritional counseling (ICD-10 - Z71.3) 03/17/2024 Nutritional counseling (ICD-10 - Z71.3) 05/12/2024 Nicotine dependence, unspecified, uncomplicated (ICD-10 - F17.200) 12/13/2024 Tinea cruris (ICD-10 - B35.6) 03/17/2024 Nicotine dependence, unspecified, uncomplicated (ICD-10 - F17.200) 06/27/2024 Other Discussed medication side effects, adverse [...] self-administe r their own oral medications per [place] Protocol. May not self-administe r Vivitrol. Plan Of Treatment No Information Insurance Providers Payer Name Payer Address Payer Phone Subscriber Number Group Number Insured Name Patient Relationship to Insured Coverage Start Date Coverage End Date [facility] Attn Claims Department [address] [place] [address] [phone] [id number] EstelitacorneliusIggyMayur Self - patient is the insured 5 MED[place] [place] [address] [id number] ProIggyMayur Self - patient is the insured 5 Medications Administered Medication Instructions Date of Administration Dosage Notes Vivitrol 11/24/2023 380 mg Pt sabina well. M anufact by [employer]. Vivitrol 12/22/2023 380 mg Mali Mendosa 12/22/2023 01:40 PM CDT >Given Lt Gluteus, tolerated well. Vivitrol 01/21/2024 380 mg Vivitrol 02/18/2024 380 mg Pt. tolerated well. No questions/concerns at this time. Vivitrol 03/17/2024 380 mg PAMELA Ayala, Judson Cho 03/17/2024 03:17:08 PM CDT >pt tolerated well with minimal discomfort observed or reported. Vivitrol 05/12/2024 380 mg [employer]. Pt tolerated well. Reports no adverse s/s. Vivitrol 06/27/2024 380 mg Jamie PAMELA, Isela Cho 06/27/2024 02:46:28 PM CAB STARTER > pt tolerated well. minimal discomfort observed or reported. Vivitrol 08/25/2024 380 mg Pt sabina well. Vivitrol 09/21/2024 380 mg Panel Beater:Xavier Garcia Cydney L 09/21/2024 11:04:35 AM CDT >Pt tolerated well. No s&s of adverse reactions. Vivitrol 10/20/2024 380 mg Vivitrol 12/02/2024 380 mg Tim Cydney L 12/02/2024 03:40:57 PM CDT >Pt tolerated well. No s&s of adverse reaction. Vivitrol 02/10/2025 380 mg Tim Cydney L 02/10/2025 02:13:26 PM CDT > Pt tolerated well. No s&s of adverse reaction. Medical (General) History Medical History History ICD Code alcohol use disorder anxiety depression Surgical History Surgery Date(Month/Year) Hospitalization History Reason Date(Month/Year) Detox x2
== END 2025-02-20 13:51 | disposition home or self-care (01) ==
LOC: ANHBWCIMG 13:51
PROVIDERS: PCP Internal Medicine; Visit Provider Orthopaedic Surgery
DX: M79.672 Pain in left foot (principal)
CPT/HCPCS: 73630

== ENCOUNTER 2025-02-20 15:42 | Outpatient (CLI) | payer OTHER, SELFPAY ==
--- NOTE | ~2025-02-20 | US_ITS ---
EXAMINATION: US venous doppler [facility] DATE: 02/20/2025 16:21 INDICATION: Left lower limb pain TECHNIQUE: Grayscale ultrasound images without and with compression and Doppler ultrasound images of the bilateral lower extremity veins were obtained. COMPARISON: None. FINDINGS: The visualized portions of right common femoral vein, profunda (deep) femoral vein, femoral vein, pop liteal vein, posterior tibial veins, peroneal veins, gastrocnemius vein and greater saphenous vein ou tflow are patent. Extensive noncompressible above and [id number] deep venous anastomosis in the left lower limb inc luding at the superficial femoral, popliteal, gastrocnemius, peroneal and posterior tibial veins. The visualized portions of left common femoral vein, profunda femoral vein and greater saphenous vein ou tflow are patent. IMPRESSION: 1. Extensive above and [id number] deep venous thrombosis in the left lower limb. Dr. Mcconnell di scussed these findings with Dr. Acosta at 5:00 PM. 2. No deep venous fibrosis in the right lower limb. Reviewed, dictated and finalized at location A. IMPRESSION: 1. Extensive above and [id number] deep venous thrombosis in the left lower limb. Dr. Mcconnell discussed these findings with Dr. Acosta at 5:00 PM. 2. No deep venous fibrosis in the right lower limb.
--- OUTSIDE RECORDS SUMMARY | 2025-02-20 16:06 | XMS_ITS | Clinical Summary ---
Author Organization [facility] Address [address] [place] [address] Phone Care Team Providers Care Feed Mill Operator Name Role Phone Chintan Cole MD Primary Care Provider [phone] Allergies No known active allergies Medications * [...] 12/19/2024 Travel 12/13/2024 Transcribe Orders [facility] Central Scheduling [address] [place] [address] Chintan Cole MD Abnormal LFTs [...] p ure alcohol) last drink 11/29 AM [facility] Utilities Answer Date Recorded In the past 12 months has [employer], gas, oil, or water [employer] threatened to shut off services in your home? Patient declined 11/29/2024 Social Connection and Isolation Panel Answer Date Recorded In a typical week, how many times do you talk on the phone with family, friends, or neighbors? Patient declined 11/29/2024 How often do you get togethe r with friends or relatives? Patient declined 11/29/2024 How often do you attend adventist or islam serv ices? Patient declined 11/29/2024 Do you belong to any clubs o r organizations such as adventist groups, unions, fraternal or athletic groups, or [...] medical care, and heating? Patient declined 11/29/2024 [facility] - Occupational Stress [...] place to sleep or slept in a longterm (including now)? No 11/19/2023 Housing Stability Vital [...] any time in the past 12 m [facility], were you homeless or living in a longterm (including now)? Patient declined 11/29/2024 Sexually Active [...] - 1.030 11/30/2024 2:34 PM CDT [facility] URINE PH 7.0 5.0 - 9.0 11/30/2024 2:34 PM CDT [facility] WBC ESTERASE Negative Negative 11/30/2024 2:34 PM CDT [facility] NITRITE Negative Negative 11/30/2024 2:34 PM CDT [facility] PROTEIN, RANDOM URINE 15 mg/dL(A) Negative 11/30/2024 2:34 PM CDT [facility] URINE GLUCOSE, QUAL Negative Negative 11/30/2024 2:34 PM CDT [facility] URINE KETONES 5 mg/dL(A) Negative 11/30/2024 2:34 PM CDT [facility] UROBILINOGEN Normal Normal mg/dL 11/30/2024 2:34 PM CDT [facility] URINE BLOOD Negative Negative aguilar/ul 11/30/2024 2:34 PM CDT [facility] URINALYSIS COLOR Dark Yellow 025 2:34 PM CDT [facility] URINALYSIS CLARITY Clear 11/30/2024 2:34 PM CDT [facility] Urine Non-Phlebotomy Collection / Unknown 11/30/2024 2:04 PM CDT 11/30/2024 2:31 PM CDT us Jose Lemus SENIOR MATERIALS SCIENTIST, STATIONARY EQUIPMENT MECHANIC URINE ORDERABLES Final Result [facility] [address] [place] [address] * (ABNORMAL) URINE DRUG SCREEN (11/30/2024 2:04 PM CDT) UR AMPHETAMINE NON DETECTED NON DETECTED 11/30/2024 2:45 PM CDT [facility] Comment: FOR MEDICAL USE ONLY. CUTOFF CONCENTRATION FOR DETECTED RESULT: AMPHETAMINE: 500 NG/ML UR BENZODIAZEPINES DETECTED(A) NON DETECTED 11/30/2024 2:45 PM CDT [facility] Comment: FOR MEDICAL USE ONLY. CUTOFF CONCENTRATION FOR DETECTED RESULT: BENZODIAZAPINE: 200 NG/ML UR COCAINE METABOLITE NON DETECTED NON DETECTED 11/30/2024 2:45 PM CDT [facility] Comment: FOR MEDICAL USE ONLY. CUTOFF CONCENTRATION FOR DETECTED RESULT: COCAINE: 150 NG/ML UR OPIATES NON DETECTED NON DETECTED 11/30/2024 2:45 PM CDT [facility] Comment: FOR MEDICAL USE ONLY. CUTOFF CONCENTRATION FOR DETECTED RESULT: OPIATES: 300 NG/ML UR PHENCYCLIDINE NON DETECTED NON DETECTED 11/30/2024 2:45 PM CDT [facility] Comment: FOR MEDICAL USE ONLY. CUTOFF CONCENTRATION FOR DETECTED RESULT: PCP: 25 NG/ML UR CANNABINOID DETECTED(A) NON DETECTED 11/30/2024 2:45 PM CDT [facility] Comment: FOR MEDICAL USE ONLY. CUTOFF CONCENTRATION FOR DETECTED RESULT: THC (MARIJUANA): 50 NG/ML UR BARBITURATE NON DETECTED NON DETECTED 11/30/2024 2:45 PM CDT [facility] Comment: FOR MEDICAL USE ONLY. CUTOFF CONCENTRATION FOR DETECTED RESULT: BARBITUATES: 200 NG/ML UR FENTANYL NON DETECTED NON DETECTED 11/30/2024 2:45 PM CDT [facility] Comment: FOR MEDICAL USE ONLY. CUTOFF CONCENTRATION FOR DETECTED RESULT: FENTANYL: 1.0 NG/ML Urine Non-Phlebotomy Collection / Unknown 11/30/2024 2:04 PM CDT 11/30/2024 2:31 PM CDT us Jose Lemus APRN, CNP URINE ORDERABLES Final Result Performing Organization Address [facility] Co de Phone Number [facility] [address] [place] [address] * EKG 12 LEAD (11/29/2024 4:44 PM CDT) Ventricular Rate 75 BPM EXTERNAL EKG Atrial Rate 75 BPM EXTERNAL EKG P-R Interval 126 ms EXTERNAL EKG QRS Duration 88 ms EXTERNAL EKG Q-T Duration 406 ms EXTERNAL EKG QTC CALCULATION 453 ms EXTERNAL EKG P [place] 59 degrees EXTERNAL EKG R [place] 30 degrees EXTERNAL EKG T [place] 57 degrees EXTERNAL EKG 11/29/2024 4:44 PM CDT Impressions EXTERNAL EKG - 12/05/2024 10:54 PM CDT Normal sinus rhythm Low voltage QRS Borderline ECG No previous ECGs available Confirmed by Yoselyn Roussaeu ([id number]) on 12/05/2024 10:54:35 PM Narrative Procedure Note Yoselyn Rousseau DO - 12/05/2024 IMPRESSION: Normal sinus rhythm Low voltage QRS Borderline ECG No previous ECGs available Confirmed by Yoselyn Rousseau ([id number]) on 12/05/2024 10:54:35 PM us Jose Lemus APRN, RAJWINDER IMG ECG ORDERABLES [place] l Result EXTERNAL EKG * GOLD TOP TUBE (11/29/2024 1:38 PM CDT) Blood No Phlebotomy Charged / Unknown 11/29/2024 1:38 PM CDT 11/29/2024 1:44 PM CDT us Jeanette Bo MD CHEMISTRY ORDERABLES Final Res ult [facility] [address] [place] [address] * (ABNORMAL) CBC WITH AUTO DIFFERENTIAL (11/29/2024 1:38 PM CDT) WBC 8.92 4.00 - 12.00 10(3)/mcL 11/29/2024 2:04 PM CDT [facility] RBC 5.23 4.40 - 5.80 10(6)/mcL 11/29/2024 2:04 PM CDT [facility] HEMOGLOBIN (HGB) 16.3 13.0 - 16.5 g/dL 11/29/2024 2:04 PM CDT [facility] HEMATOCRIT (HCT) 47.3 38.0 - 50.0 % 11/29/2024 2:04 PM CDT [facility] MCV 90.4 82.0 - 96.0 fL 11/29/2024 2:04 PM CDT [facility] MCH 31.2 26.0 - 32.0 pg 11/29/2024 2:04 PM CDT [facility] MCHC 34.5 31.0 - 36.0 g/dL 11/29/2024 2:04 PM CDT [facility] PLATELET COUNT 243 140 - 440 10(3)/mcL 11/29/2024 2:04 PM CDT [facility] RDW 12.5 11.8 - 15.5 % 11/29/2024 2:04 PM CDT [facility] MPV 9.1 8.0 - 12.6 fL 11/29/2024 2:04 PM CDT [facility] NEUTROPHILS 68.9(H) 40.0 - 68.0 % 11/29/2024 2:04 PM CDT [facility] LYMPHOCYTES 19.5 19.0 - 49.0 % 11/29/2024 2:04 PM CDT [facility] MONOCYTES 9.8 3.0 - 13.0 % 11/29/2024 2:04 PM CDT [facility] EOSINOPHILS 0.9 0.0 - 8.0 % 11/29/2024 2:04 PM CDT [facility] BASOPHILS 0.9 0.0 - 1.0 % 11/29/2024 2:04 PM CDT [facility] ABSOLUTE NEUTROPHILS 6.15(H) 1.40 - 5.30 10(3)/mcL 11/29/2024 2:04 PM CDT [facility] ABSOLUTE LYMPHOCYTES 1.74 0.90 - 3.30 10(3)/[facility] 11/29/2024 2:04 PM CDT [facility] ABSOLUTE MONOCYTES 0.87 0.10 - 0.90 10(3)/[facility] 11/29/2024 2:04 PM CDT [facility] ABSOLUTE EOSINOPHIL 0.08 0.00 - 0.50 10(3)/[facility] 11/29/2024 2:04 PM CDT [facility] ABSOLUTE BASOPHILS 0.08 0.00 - 0.10 10(3)/[facility] 11/29/2024 2:04 PM CDT [facility] NRBC PER 100 WBC 0 11/30/19 2:04 PM CDT [facility] Blood Venipuncture / Unknown 11/29/2024 1:38 PM CDT 11/29/2024 1:42 PM CDT us Jose Lemus SENIOR MATERIALS SCIENTIST, STATIONARY EQUIPMENT MECHANIC HEMATOLOGY ORDERABLES F inal Result [facility] [address] [place] [address] * PROTIME (PT) (PROTHROMBIN TIME) (11/29/2024 1:38 PM CDT) PROTIME-PATIENT 13.0 11.6 - 14.8 sec 11/29/2024 2:03 PM CDT [facility] INR 1.0 0.9 - 1.2 11/29/2024 2:03 PM CDT [facility] Comment: Therapeutic Ranges INR = 2.0-3.0: Venous thromb, atrial fib, pul embolism, tissue heart valve, ami. INR = 2.5-3.5: Mechanical heart valve Critical value for INR is >/= 4.5 Blood Venipuncture / Unknown 11/29/2024 1:38 PM CDT 11/29/2024 1:42 PM CDT Jose Lemus APRN, STATIONARY EQUIPMENT MECHANIC HEMATOLOGY ORDERABLES F inal Result Performing Organization Address City/[facility]/ZIP Co de Phone Number [facility] [address] [place] [address] * PHOSPHORUS (PO4) (11/29/2024 1:38 PM CDT) [facility] PHOSPHORUS 3.4 2.5 - 4.5 mg/dL 11/29/2024 2:09 PM CDT [facility] Blood Venipuncture / Unknown 11/29/2024 1:38 PM CDT 11/29/2024 1:42 PM CDT Jose Lemus APRN, STATIONARY EQUIPMENT MECHANIC CHEMISTRY ORDERABLES Fi nal Result [facility] [address] [place] [address] * MAGNESIUM (MG) (11/29/2024 1:38 PM CDT) Pathologist [facility] MAGNESIUM 2.1 1.6 - 2.6 mg/dL 11/29/2024 2:09 PM CDT [facility] Blood Venipuncture / Unknown 11/29/2024 1:38 PM CDT 11/29/2024 1:42 PM CDT Jose Lemus APRN, STATIONARY EQUIPMENT MECHANIC CHEMISTRY ORDERABLES Fi nal Result Performing Organization Address City/[facility]/ZIP Co de Phone Number [facility] [address] [place] [address] * LIPASE (11/29/2024 1:38 PM CDT) LIPASE 68 8 - 78 U/L 11/29/2024 2:09 PM CDT [facility] Blood Venipuncture / Unknown 11/29/2024 1:38 PM CDT 11/29/2024 1:42 PM CDT Jose Lemus APRN, STATIONARY EQUIPMENT MECHANIC CHEMISTRY ORDERABLES Fi nal Result Performing Organization Address [facility] Co de Phone Number [facility] [address] [place] [address] * (ABNORMAL) ETHYL ALCOHOL (ETHANOL) (11/29/2024 1:38 PM CDT) ETHANOL 322(H) <10 mg/dL 11/29/2024 2:09 PM CDT [facility] Blood Venipuncture / Unknown 11/29/2024 1:38 PM CDT 11/29/2024 1:42 PM CDT Jose Lemus APRN, STATIONARY EQUIPMENT MECHANIC CHEMISTRY ORDERABLES Fi nal Result Performing Organization Address City/[facility] Co de Phone Number [facility] [address] [place] [address] * (ABNORMAL) CMP (COMPREHENSIVE METABOLIC PANEL) (11/29/2024 1:38 PM CDT) SODIUM 140 136 - 145 mmol/L 11/29/2024 2:09 PM CDT [facility] POTASSIUM 4.2 3.5 - 5.1 mmol/L 11/29/2024 2:09 PM CDT [facility] CHLORIDE 105 98 - 107 mmol/L 11/29/2024 2:09 PM T [facility] CO2, VENOUS 25 22 - 30 mmol/L 11/29/2024 2:09 PM CDT [facility] ANION GAP 14.2 <18.0 mmol/L 11/29/2024 2:09 PM CDT [facility] GLUCOSE 99 70 - 99 mg/dL 11/29/2024 2:09 PM T [facility] BUN 11 9 - 21 mg/dL 11/29/2024 2:09 PM T [facility] CREATININE, BLOOD 0.85 0.70 - 1.30 mg/dL 11/29/2024 2:09 PM CDT [facility] BUN/CREATININE RATIO 13 12 - 20 ratio 11/29/2024 2:09 PM T [facility] TOTAL PROTEIN 6.0 6.0 - 8.0 g/dL 11/29/2024 2:09 PM T [facility] ALBUMIN 3.3(L) 3.5 - 5.0 g/dL 11/29/2024 2:09 PM T [facility] A/G RATIO 1.2 1.0 - 2.2 11/29/2024 2:09 PM CDT [facility] CALCIUM 7.7(L) 8.7 - 10.5 mg/dL 11/29/2024 2:09 PM T [facility] T BILI 0.6 0.2 - 1.2 mg/dL 11/29/2024 2:09 PM CDT [facility] SGOT (AST) 46(H) <43 U/L 11/29/2024 2:09 PM CDT [facility] SGPT (ALT) 26 <56 U/L 11/29/2024 2:09 PM CDT [facility] ALKALINE PHOSPHATASE 89 40 - 150 U/L 11/29/2024 2:09 PM CDT [facility] GFR, ESTIMATED >60 >=60 11/29/2024 2:09 PM CDT [facility] Comment: Creatinine Clearance is the preferred criteria for selecting drug dose adjustments in renally impaired patients. The GFR is provided as additional pertinent clinical information. GFR is reported in mL/min/1.73 sq m. Calculation based on the Chronic Kidney Disease Epidemiology Collaboration (CKD- EPI) equation refit without adjustment for race. GFR, EST. >60 >=60 025 2:09 PM CDT [facility] GFR, EST. NONAFRICAN >60 >=60 11/29/2024 2:09 PM CDT [facility] Blood Venipuncture / Unknown 11/29/2024 1:38 PM CDT 11/29/2024 1:42 PM CDT us Jose Lemus APRN, STATIONARY EQUIPMENT MECHANIC CHEMISTRY ORDERABLES Fi nal Result [facility] [address] [place] [address] * AMYLASE (11/29/2024 1:38 PM CDT) AMYLASE 27 25 - 125 U/L 11/29/2024 2:09 PM CDT [facility] Blood Venipuncture / Unknown 11/29/2024 1:38 PM CDT 11/29/2024 1:42 PM CDT Jose Lemus APRN, STATIONARY EQUIPMENT MECHANIC CHEMISTRY ORDERABLES Fi nal Result [facility] [address] [place] [address] * EKG SCAN (11/29/2024 12:00 AM CDT) [...] measures to stabilize the patient. Care Teams Feed Mill Operator Relationship Specialty Start Date End Date Chintan Cole MD [address] [place] [address] [place] [address] PCP - General Internal Medicine 11/29/24
--- OUTSIDE RECORDS SUMMARY | 2025-02-20 16:06 | XMS_ITS | Clinical Summary ---
Author Organization [facility] Address [address] [place] [address] Care Team Providers Care Furniture Mover Name Role Phone No, Physician Primary Care Provider [phone] Allergies No known active allergies Medications [email or web address] [...] patient's age to complete this topic Insurance [facility] Care Teams Furniture Mover Relationship Specialty Start Date End Date No, Physician PCP - General 04/07/23
== END 2025-02-20 15:43 | disposition home or self-care (01) ==
PROVIDERS: PCP Internal Medicine; Visit Provider Orthopaedic Surgery
DX: I82.890 Acute embolism and thrombosis of other specified veins (principal); S97.82XA Crushing injury of left foot, initial encounter; M79.89 Other specified soft tissue disorders
CPT/HCPCS: 93970

== ENCOUNTER 2025-03-11 12:29 | Emergency (ER) | payer OTHER, SELFPAY ==
--- OUTSIDE RECORDS SUMMARY | 2025-03-10 09:20 | XMS_ITS ---
Author Organization [facility] Address [address] [place] [address] Care Team Providers Care Manager Labor Delivery Name Role Phone Chintan Cole Primary Care Provider Allergies No Known Allergies REASON FOR VISIT f/u from Dr. Collier; blood clot Medications Medication SIG (Take, Route, Frequency, Duration) Notes Start Date End Date Status Multivitamin - 1 tablet Orally Once a day; Duration: 30 days Active Naltrexone HCl 50 MG 1 tablet Orally Once a day; Duration: 15 days As needed for alcohol cravings Active Escitalopram Oxalate 20 MG 1 tablet Oral ly Once a day; Duration: 30 days Active Acamprosate Calcium 333 MG 2 tablets Ora lly three times a day Active Vitamin B-1 100 MG 1 tablet Orally Once a day; Duration: 30 days Active Folic Acid 1 MG 1 tablet Orally Once a day; Duration: 30 days Active Xarelto 20 MG 1 tablet with food Orally Once a day; Duration: 30 days BEGIN AFTER COMPLETING 21 DAYS OF XARELTO 15 MG TWICE DAILY 03/10/2025 Active hydrOXYzine Pamoate 50 MG 1-2 capsules Orally Every 6 hours As needed anxiety Active Imiquimod 5 % 1 application at bed time, leave on for 8 hours then wash off Externally Three times a Week 03/10/2025 Active Ketoconazole 2 % 1 application Acid Remover ally Once a day; Duration: 14 days 12/13/2024 Active Cetirizine HCl 10 MG 1 tablet as needed Orally Once a day; Duration: 30 day(s) Active Flaxseed Oil 1000 MG 1 capsule Orally on ce daily Active Xarelto 15 MG 1 tablet with food O rally Once a day Active Social History Sex Assigned At : Social History Observation Description Sex Assigned At Male Vital Signs Oximetry 98 % 03/10/2025 BMI 22.69 kg/m2 03/10/2025 Respiratory Rate 16 /min 03/10/2025 Temperature 97.5 degrees Fahrenheit 03/10/20 25 Heart Rate 64 /min 03/10/2025 Blood pressure systolic 118 mm Hg 03/10/20 25 Blood pressure diastolic 74 mm Hg 025 Height 73 inches in 03/10/2025 Weight 172 lbs lbs 03/10/2025 Encounters Encounter Location Date Provider Diagnosis [address] [address] 03/10/2025 Chintan Cole Alcohol use disorder F10.99 ; Alcoholic fatty liver K70.0 ; Deep venous thrombosis (DVT) of left peroneal vein I82.492 ; Generalized anxiety disorder F41.1 and Verruca vulgaris B07.9 Assessments Encounter Date Diagnosis (ICD Code) Assessment Notes Treatment Notes Treatment Clinical Notes Section Notes 03/10/2025 Alcohol use disorder (ICD-10 - F10.99) DISCUSSED RISK OF HEMATOMA WHILE TAKING XARELTO. FOREGO INJECTIONS UNTIL AFTER 3 MONTHS OF XARELTO (UNTIL ABOUT 05/24/2025). 03/10/2025 Alcoholic fatty liver (ICD-10 - K70.0) 03/10/2025 Deep venous thrombosis (DVT) of left peroneal vein (ICD-10 - I82.492) 03/10/2025 Generalized anxiety disorder (ICD-10 - F41.1) RESUME LEXAPRO. 03/10/2025 Verruca vulgaris (ICD-10 - B07.9) USE VASELINE AROUND WART PRIOR TO APPLYING CREAM AND WASH HANDS AFTER APPLICATION Plan Of Treatment Medication Medication Name Sig Start Date Stop Date Notes Multivitamin - 1 tablet Orally Once a day; Duration: 30 days Naltrexone HCl 50 MG 1 tablet Orally Onc e a day; Duration: 15 days Escitalopram Oxalate 20 MG 1 tablet Oral ly Once a day; Duration: 30 days Acamprosate Calcium 333 MG 2 tablets Ora lly three times a day Vivitrol 380 MG 380 mg Intramuscular every 28 days 12/02/2024 Vitamin B-1 100 MG 1 tablet Orally Once a day; Duration: 30 days Folic Acid 1 MG 1 tablet Orally Once a day; Duration: 30 days Xarelto 20 MG 1 tablet with food O rally Once a day; Duration: 30 days 03/10/2025 Imiquimod 5 % 1 application at bed time, leave on for 8 hours then wash off Externally Three times a Week 03/10/2025 Future Test Test Name Order Date CBC With Differential/Platelet* 03/10/20 CMP 14 Comprehensive Metabolic Panel* Ultrasound - based Elastography of liver (Fibroscan) 03/10/2025 Next Appt Details Follow Up: 4 Weeks, Reason: LIVER ELASTOGRAPHY RESULTS, LAB RESULTS Progress Notes * Mayur SANTANADOB:[birth year] (49 yo M)Acc No.[id number]:03/10/2025 Progress Notes Patient: Mayur HERRERA Provider: Osman Cole :1975 A ge:49 Y S ex:Male Date:03/10/2025 Address:[address] [place], [place] [id number] 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 Collier; blood clot * HPI: I nterim History: Emergency room visit N o. Was hospitalized N o. TAKING XARELTO 15 MG BID SINCE 02/21/2025 FOR LLE DVT AFTER PROCEDURE. SAW DR. COLLIER OR FX LEFT FOOT. CHIP ONLY. HAD BEEN LYING AROUND SINCE HE HURT HIS FOOT ABOUT 02/03/2025. HAS NOT BEEN ABSTAINING FROM ALCOHOL. DRINKING 'QUITE A BIT.' NO PERSONAL OR FAMILY HX OF DVT OR PE. NO BLEEDING, CP, OR SOB. STOPPED TAKING ANTIDEPRESSANTS ABOUT 3 WEEKS AGO DUE TO HEAVY DRINKING. WART ON RIGHT LATERAL DISTAL JOHNSON APPEARED ABOUT 3 WEEKS AGO. NO BLEEDING OR TENDER. NO NOTED CHANGE IN SIZE. D epression Screening: PHQ-9 L ittle interest or pleasure in doing things?Several days F eeling down, depressed, or hopeless S everal days T rouble falling or staying asleep, or sleeping too much S everal days F eeling tired or having little energy S everal days P oor appetite or overeating S everal days F eeling bad about yourself or that you are a failure, or have let yourself or your family down S everal days T rouble concentrating on things, such as reading the newspaper or watching television N ot at all M oving or speaking so slowly that other people could have noticed; or the opposite, being so fidgety or restless that you have been moving around a lot more than usual N ot at all T houghts that you would be better off or of hurting yourself in some way N ot at all T otal Score 6 I nterpretation M ild Depression P reventative Health and Wellness follow-up: Action Plans for Clinical Quality Measures: C olorectal Cancer Screening: N ot addressed during this visit. See notes for details. . C SSRS Interpretation and Follow Up Plan: CSSRS Interpretation and Follow Up Plan C SSRS Screen documented using SF Y es R isk Disposition from SF L ow - No Follow Up Plan Required F ollow Up Plan N o Follow Up Plan required at this time. T imeframe of Screening T ronn * ROS: B asic ROS: Admits S ubstance Abuse. * Medical History: * Surgical History: D enies Past Surgical History * Hospitalization/Major Diagno stic Procedure: D etox x2 * Family History: F ather: alive. M other: alive. 1 brother(s) , 1 sister(s) - healthy. . Diabetes and High BP Maternal side. * Social History: P rimary Social History: L iving Arrangement L iving Arrangement: Dependent Living , Living with: Parent(s) , Is this a supportive environment? Yes .. Alcohol Use A lcohol Use Frequency: Never. Illicit Substance Usage I llicit Substance Usage: No. Employment Status E mployment Status: Unemployed. Single Question Alcohol Screening H ow may times in the past year have you had (4 for women, or 5 for men) or more drinks in a day? 0 .. M iscellaneous: M ethod of learning P referred method of learning: R eading * Medications: T akingXarelto 15 MG Tablet 1 tablet with food Orally Once a day Flaxseed Oil 1000 MG Capsule 1 capsule Orally once daily Vitamin B-1 100 MG Tablet 1 tablet Orally Once a day Folic Acid 1 MG Tablet 1 tablet Orally Once a day Multivitamin - Tablet 1 tablet Orally Once a day Escitalopram Oxalate 20 MG Tablet 1 tablet Orally Once a day Ketoconazole 2 % Cream 1 application Externally Once a day Naltrexone HCl 50 MG Tablet 1 tablet Orally Once a day As needed for alcohol cravingsCetirizine HCl 10 MG Tablet 1 tablet as needed Orally Once a day hydrOXYzine Pamoate 50 MG Capsule 1- 2 capsules Orally Every 6 hours As needed anxietyVivitrol 380 MG Suspension Reconstituted 380 mg Intramuscular every 28 days Acamprosate Calcium 333 MG Tablet Delayed Release 2 tablets Orally three times a day Taking Xarelto 15 MG Tablet 1 tablet with food Orally Once a day Taking Flaxseed Oil 1000 MG Capsule 1 capsule Orally once daily Taking Vitamin B-1 100 MG Tablet 1 tablet Orally Once a day Taking Folic Acid 1 MG Tablet 1 tablet Orally Once a day Taking Multivitamin - Tablet 1 tablet Orally Once a day Taking Escitalopram Oxalate 20 MG Tablet 1 tablet Orally Once a day Taking Ketoconazole 2 % Cream 1 application Externally Once a day Taking Naltrexone HCl 50 MG Tablet 1 tablet Orally Once a day As needed for alcohol cravingsTaking Cetirizine HCl 10 MG Tablet 1 tablet as needed Orally Once a day Taking hydrOXYzine Pamoate 50 MG Capsule 1-2 capsules Orally Every 6 hours As needed anxietyTaking Vivitrol 380 MG Suspension Reconstituted 380 mg Intramuscular every 28 days Taking Acamprosate Calcium 333 MG Tablet Delayed Release 2 tablets Orally three times a day * Allergies: N .K.D.A.no[Allergies Verified] Objective: * Vitals: I nitials: mm, Wt:172 lbs, Ht: 73 inches, BMI:22.69, BP:118/74, HR:64, Oxygen sat %:98, Temp:97.5, RR:16, Pain scale:4. * Examination: G eneral Examination: GENERAL APPEARANCE: w ell developed, well nourished, in no acute distress. HEAD: n ormocephalic, atraumatic. EYES: P ERRLA, sclera and conjunctiva clear. EARS External ears intact. NOSE: n fausto patent, no lesions, septum intact. ORAL CAVITY: m ucosa moist. THROAT: n o erythema, no exudate, pharynx normal. NECK/THYROID: n o JVD, no goiter. SKIN: w arm and dry, no rashes, ABOUT 2-3 MM VERRUCOUS LESION DISTAL LATERAL RIGHT FOREARM. HEART: r egular rate and rhythm, no murmurs. LUNGS: r espirations regular and easy, clear to auscultation bilaterally. ABDOMEN: b owel sounds present, soft, nontender, nondistended, no masses palpable, no organomegaly . MUSCULOSKELETAL: n o joint deformity, swelling, redness, or warmth . EXTREMITIES: n o clubbing, cyanosis, or edema. NEUROLOGIC: c ranial nerves 2-12 grossly intact. Assessment: * Assessment: 1. A lcoholic fatty liver - K70.0 2 . A lcohol use disorder - F10.99 (Primary) 3 . D eep venous thrombosis (DVT) of left peroneal vein - I82.492 4 . G eneralized anxiety disorder - F41.1 5 . V erruca vulgaris - B07.9 Plan: * Treatment: 2. A lcoholic fatty liver L AB: CMP 14 Comprehensive Metabolic Panel* (Ordered for 03/10/2025) I maging: Ultrasound - based Elastography of liver (Fibroscan) (Ordered for 03/10/2025) 3. D eep venous thrombosis (DVT) of left peroneal vein L AB: CBC With Differential/Platelet* (Ordered for 03/10/2025) 4. G eneralized anxiety disorder Refill Escitalopram Oxalate Tablet, 20 MG, 1 tablet, Orally, Once a day, 30 days, 30, Refills 2.? Clinical Notes: RESUME LEXAPRO. 5. V erruca vulgaris Start Imiquimod Cream, 5 %, 1 application at bedtime, leave on for 8 hours then wash off, Externally, Three times a Week, 24 Packet, Refills 0. Clinical Notes: USE VASELINE AROUND WART PRIOR TO APPLYING CREAM AND WASH HANDS AFTER APPLICATION? * Recommended Wellness and Pre vention Guidelines: * S tatus A lert L ast Done N ext Due A ction Taken N ONCOMPLIANT C olorectal cancer screening - 0 03/10/2025 - - * Procedure Codes: * Follow Up: 4 Weeks (Reason: LIVER ELASTOGRAPHY RESULTS, LAB RESULTS) * * Sign off status: Completed true * Provider: Osman Cole Date: 0 03/10/2025 Generated for Thair paz/Chris/Pee on: 0 03/11/2025 12:33 PM CDT History and Physical Notes * HPI (History of Present Illness) Category Sub-Category Detail Notes Category Not es Interim History Was hospitalized No TAKING XARELTO 15 MG BID SINCE 02/21/2025 FOR LLE DVT AFTER PROCEDURE. SAW DR. COLLIER OR FX LEFT FOOT. CHIP ONLY. HAD BEEN LYING AROUND SINCE HE HURT HIS FOOT ABOUT 02/03/2025. HAS NOT BEEN ABSTAINING FROM ALCOHOL. DRINKING 'QUITE A BIT.' NO PERSONAL OR FAMILY HX OF DVT OR PE. NO BLEEDING, CP, OR SOB. STOPPED TAKING ANTIDEPRESSANTS ABOUT 3 WEEKS AGO DUE TO HEAVY DRINKING. WART ON RIGHT LATERAL DISTAL JOHNSON APPEARED ABOUT 3 WEEKS AGO. NO BLEEDING OR TENDER. NO NOTED CHANGE IN SIZE. Emergency room visit No Depression Screening PHQ-9 Little inte rest or pleasure in doing things: Several days Feeling down, depressed, or hopeless: Se veral days Trouble falling or staying asleep, or sl eeping too much: Several days Feeling tired or having little energy: S everal days Poor appetite or overeating: Several day s Feeling bad about yourself o r that you are a failure, or have let yourself or your family down: Several days Trouble concentrating on thi ngs, such as reading the newspaper or watching television: Not at all Moving or speaking so slowly that other people could have noticed; or the opposite, being so fidgety or restless that you have been moving around a lot more than usual: Not at all Thoughts that you would be b jason off or of hurting yourself in some way: Not at all Total Score: 6 Interpretation: Mild Depression Preventative Health and Wellness follow-up Action Plans for Clinical Quality Measures: Colorectal Cancer Screening:: Not addressed during this visit. See notes for details. . CSSRS Interpretation and Follow Up Plan CSSRS Interpretation and Follow Up Plan CSSRS Screen documented using SF: Yes Risk Disposition from SF: Low - No Follo w Up Plan Required Follow Up Plan: No Follow Up Plan requir ed at this time. Timeframe of Screening: Today Examination Category Sub-Category Detail Notes Category Not es General Examination GENERAL APPEARANCE: well dev eloped, well nourished, in no acute distress HEAD: normocephalic, atrau matic EYES: PERRLA, sclera and c onjunctiva clear EARS External ears intact NOSE: nares patent, no les ions, septum intact THROAT: no erythema, no exud ate, pharynx normal NECK/THYROID: no JVD, no goiter HEART: regular rate and rhy thm, no murmurs LUNGS: respirations regular and easy, clear to auscultation bilaterally ABDOMEN: bowel sounds present , soft, nontender, nondistended, no masses palpable, no organomegaly NEUROLOGIC: cranial nerves 2-12 grossly intact SKIN: warm and dry, no maisha hes, ABOUT 2-3 MM VERRUCOUS LESION DISTAL LATERAL RIGHT FOREARM EXTREMITIES: no clubbing, cyanosi s, or edema MUSCULOSKELETAL: no joint deformity, swelling, redness, or warmth ORAL CAVITY: mucosa moist
[2025-03-11 12:32] VITALS: BP 108/73; PULSE 88; RESP 20; TEMP 36.6; O2SAT 97
--- OUTSIDE RECORDS SUMMARY | 2025-03-11 12:33 | XMS_ITS | Patient Health Record ---
Author Organization [facility] Address [address] [place] [address] Care Team Providers Care Project Construction Assistant Manager Name Role Phone Douglas Chintan Primary Care Provider NasimNegritas Unavailable [phone] [place] Unavailable [phone] Brunilda Clay Unavailable [phone] Sade Bragg Unavailable [phone] Allergies No Known Allergies Results Component Value Reference Range Notes 12 Panel Urine Drug Screen Reviewed date:08/25/2024 02:38:17 PM Interpretation: Performing Lab: Notes/Report: THC POS PHYLLIS NEG MOP (OPI) NEG AMP NEG MET NEG BAR NEG BZO NEG MDMA NEG MTD NEG OXY NEG PCP NEG BUP NEG CBC With Differential/Platel et* (Not yet reviewed by provider) Interpretation: Performing [facility], [address], [place], Phone - [phone], Director - PhDRicchiuti Notes/Report: WBC 8.9 3.4-10.8 x10E3/uL RBC 5.57 4.14-5.80 x10E6/uL Hemoglobin 16.8 13.0-17.7 g/dL Hematocrit 51.0 37.5-51.0 % MCV 92 79-97 fL MCH 30.2 26.6-33.0 pg MCHC 32.9 31.5-35.7 g/dL RDW 12.6 11.6-15.4 % Platelets 257 150-450 x10E3/uL Neutrophils 66 Not Estab. % Lymphs 23 Not Estab. % Monocytes 8 Not Estab. % Eos 2 Not Estab. % Basos 1 Not Estab. % Neutrophils (Absolute) 5.9 1.4-7.0 x10E3/uL Lymphs (Absolute) 2.0 0.7-3.1 x10E3/uL Monocytes(Absolute) 0.7 0.1-0.9 x10E3/uL Eos (Absolute) 0.2 0.0-0.4 x10E3/uL Baso (Absolute) 0.1 0.0-0.2 x10E3/uL Immature Granulocytes 0 Not Estab. % Immature Grans (Abs) 0.0 0.0-0.1 x10E3/uL CMP 14 Comprehensive Metabol ic Panel* (Not yet reviewed by provider) Interpretation: Performing Lab:[facility] [place], [address], [place], Phone - [phone], Director - Radames Notes/Report: Glucose TNP Test not performed. Serum was in contact with cells when received which will make the result inaccurate. BUN 5 6-24 mg/dL Creatinine 0.82 0.76-1.27 mg/dL eGFR 108 >59 mL/min/1.73 BUN/Creatinine Ratio 6 9-20 Sodium 142 134-144 mmol/L Potassium TNP Test not performed. Serum was in contact with cells when received which will make the result inaccurate. Chloride 104 96-106 mmol/L Carbon Dioxide, Total 19 20-29 mmol/L Calcium 8.3 8.7-10.2 mg/dL Protein, Total 6.8 6.0-8.5 g/dL Albumin 4.0 4.1-5.1 g/dL Globulin, Total 2.8 1.5-4.5 g/dL Bilirubin, Total 0.4 0.0-1.2 mg/dL Alkaline Phosphatase 153 44-121 IU/L Effective March 20, 2025 Alkaline Phosphatase reference interval will be changing to: Age Male Female 0 - 5 days 47 - 127 47 - 127 6 - 10 days 29 - 242 29 - 242 11 - 20 days 109 - 357 109 - 357 21 - 30 days 94 - 494 94 - 494 1 - 2 months 149 - 539 149 - 539 3 - 6 months 131 - 452 131 - 452 7 - 11 months 117 - 401 117 - 401 12 months - 6 years 158 - 369 158 - 369 7 - 12 years 150 - 409 150 - 409 13 years 156 - 435 78 - 227 14 years 114 - 375 64 - 161 15 years 88 - 279 56 - 134 16 years 74 - 207 51 - 121 17 years 63 - 161 47 - 113 18 - 20 years 51 - 125 42 - 106 21 - 50 years 47 - 123 41 - 116 51 - 80 years 49 - 135 51 - 125 >80 years 48 - 129 48 - 129 AST (SGOT) 27 0-40 IU/L ALT (SGPT) 18 0-44 IU/L 14 Panel Urine Drug Screen Reviewed date:02/10/2025 [...] neg 12 Panel Urine Drug Screen Reviewed date:10/20/2024 [...] Notes/Report: 12 Panel Urine Drug Screen Reviewed date:06/27/2024 [...] Diagnosis 1 Depressive disorder (F32.9) Referral Organization [facility] Referring Provider First Name Pili Referring Provider Last Name Nithin pompa Referring Provider Speciality [facility] counseling Referred Provider Specialty Behavioral [facility] Clinical Notes Alondra [place] 10/25/2024 03:18:22 PM >LISA called the client to discuss the referral from Dr. Cole. Client stated that he was not interested in starting therapy back up. Referral Priority Routine Reason referral for [facility] services; would also like to switch from Carlos to Nishant for therapists Diagnosis 1 Alcohol use disorder (F10.99) Referral Organization [facility] Referring Provider First Name Brunilda Referring Provider Last Name Obed Referring Provider Speciality Psychiatry Referred Provider Specialty Behavioral [facility] Clinical Notes Rehana Luis 03:13:18 PM > Health Navigator attempted to make contact with Iggy today. Please see encounter dated 01/13/2025 for CM notes. Referral Priority Routine Medications Medication SIG (Take, Route, Frequency, Duration) Notes Start Date End Date Status Vitamin B-1 100 MG 1 tablet Orally Once a day; Duration: 30 days Active Multivitamin - 1 tablet Orally Once a day; Duration: 30 days Active Ketoconazole 2 % 1 application Concrete Carpenter ally Once a day; Duration: 14 days 12/13/2024 Active Folic Acid 1 MG 1 tablet Orally Once a day; Duration: 30 days Active Xarelto 20 MG 1 tablet with food Orally Once a day; Duration: 30 days BEGIN AFTER COMPLETING 21 DAYS OF XARELTO 15 MG TWICE DAILY 03/10/2025 Active Naltrexone HCl 50 MG 1 tablet Orally Once a day; Duration: 15 days As needed for alcohol cravings Active Cetirizine HCl 10 MG 1 tablet as needed Orally Once a day; Duration: 30 day(s) Active Escitalopram Oxalate 20 MG 1 tablet Oral ly Once a day; Duration: 30 days Active Acamprosate Calcium 333 MG 2 tablets Ora lly three times a day Active hydrOXYzine Pamoate 50 MG 1-2 capsules Orally Every 6 hours As needed anxiety Active Flaxseed Oil 1000 MG 1 capsule Orally on ce daily Active Xarelto 15 MG 1 tablet with food O rally Once a day Active Imiquimod 5 % 1 application at bed time, leave on for 8 hours then wash off Externally Three times a Week 03/10/2025 Active Social History Tobacco Use: Social History [...] W/U Status Risk Notes Problem Tobacco user (118607589) Nicotine dependence, unspecified, uncomplicated (F17.200) Active confirmed Problem Generalized anxiety disorder (01855691) Generalized anxiety disorder (F41.1) Active confirmed Problem Alcoholic fatty liver (13937413) Alcoholic fatty liver (K70.0) Active confirmed Problem Depressive disorder (66522353) Depressive disorder (F32.9) Active confirmed Problem Alcohol use disorder (8325072255) Alcohol use disorder (F10.99) Active confirmed Vital Signs Heart Rate 64 /min 03/10/2025 Temperature 97.5 degrees Fahrenheit 03/10/2025 Respiratory Rate 16 /min 03/10/2025 Oximetry 98 % 03/10/2025 Blood pressure diastolic 74 mm Hg 03/10/2025 Height 73 inches in 03/10/2025 Blood pressure systolic 118 mm Hg 03/10/2025 Weight 172 lbs lbs 03/10/2025 BMI 22.69 kg/m2 03/10/2025 Encounters Encounter Location Date Provider Diagnosis [address] [address] 03/17/2024 Samuel Rouse Alcohol use disorder F10.99 ; Overweight (BMI 25.0-29.9) E66.3 ; Nutritional counseling Z71.3 and Nicotine dependence, unspecified, uncomplicated F17.[address] [address] 05/09/2024 Chintan Cole Alcohol use disorder F10.[address] [address] 05/12/2024 Samuel Rouse Alcohol use disorder F10.99 ; Overweight (BMI 25.0-29.9) E66.3 ; Nutritional counseling Z71.3 and Nicotine dependence, unspecified, uncomplicated F17.[address] [address] 06/27/2024 Sade Szlufik Alcohol use disorder F10.[address] [address] 08/25/2024 Sade Szlufik Alcohol use disorder F10.[address] [address] 09/21/2024 Sade Szlufik Alcohol use disorder F10.99 and Nicotine dependence, unspecified, uncomplicated F17.[address] [address] 10/20/2024 Chintan Cole Alcohol use disorder F10.99 and Depressive disorder F32.[address] [address] 12/02/2024 Brunilda Clay Alcohol use disorder F10.99 and Nicotine dependence, unspecified, uncomplicated F17.[address] [address] 12/13/2024 Chintan Cole Alcohol use disorder F10.99 ; Leg swelling M79.89 ; Abnormal liver enzymes R74.8 and Tinea cruris B35.6 [facility] [address] [place] [address] 12/26/2024 Chintan Cole Alcohol use disorder F10.99 and Alcoholic fatty liver K70.0 [facility] [address] [place] [address] 01/13/2025 [place] [address] [place] [address] 02/10/2025 Chintan Cole Alcohol use disorder F10.[address] [place] [address] 03/10/2025 Chintan Cole Alcohol use disorder F10.99 ; Alcoholic fatty liver K70.0 ; Deep venous thrombosis (DVT) of left peroneal vein I82.492 ; Generalized anxiety disorder F41.1 and Verruca vulgaris B07.[address] [place] [address] 05/02/2024 Sade Bragg [address] [place] [address] 05/09/2024 Sade Bragg Generalized anxiety disorder F41.[address] [place] [address] 10/03/2024 Chintan Cole Generalized anxiety disorder F41.1 [facility] [address] [place] [address] 11/30/2024 Sade Bragg [address] [place] [address] 12/05/2024 Chintan Cole [address] [place] [address] 12/14/2024 Sade Bragg [address] [place] [address] 02/21/2025 Chintan Cole Assessments Encounter Date Diagnosis (ICD Code) Assessment [...] K70.0) DISCUSSED IMPORTANCE OF ABSTINENCE FROM ALCOHOL 03/10/2025 Alcoholic fatty liver (ICD-10 - K70.0) 03/10/2025 Alcohol use disorder (ICD-10 - F10.99) DISCUSSED RISK OF HEMATOMA WHILE TAKING XARELTO. FOREGO INJECTIONS UNTIL AFTER 3 MONTHS OF XARELTO (UNTIL ABOUT 05/24/2025). 06/27/2024 Alcohol use disorder (ICD-10 - F10.99) [...] or be administered own oral medication per [place] Protocols. Provided informed consent with understanding of [...] Z71.3) 03/17/2024 Nutritional counseling (ICD-10 - Z71.3) 03/10/2025 Deep venous thrombosis (DVT) of left peroneal vein (ICD-10 - I82.492) 03/10/2025 Generalized anxiety disorder (ICD-10 - F41.1) RESUME LEXAPRO. 05/12/2024 Nicotine dependence, unspecified, uncomplicated (ICD-10 - F17.200) 12/13/2024 Tinea cruris (ICD-10 - B35.6) 03/17/2024 Nicotine dependence, unspecified, uncomplicated (ICD-10 - F17.200) 03/10/2025 Verruca vulgaris (ICD-10 - B07.9) USE VASELINE AROUND WART PRIOR TO APPLYING CREAM AND WASH HANDS AFTER APPLICATION 06/27/2024 Other Discussed medication side effects, adverse [...] self-administe r their own oral medications per [place] Protocol. May not self-administe r Vivitrol. Plan Of Treatment Future Test Test Name Order Date CBC With Differential/Platelet* 03/10/20 25 CMP 14 Comprehensive Metabolic Panel* Ultrasound - based Elastography of liver (Fibroscan) 03/10/2025 Insurance Providers Payer Name Payer Address Payer Phone Subscriber Number Group Number Insured Name Patient Relationship to Insured Coverage Start Date Coverage End Date [facility] Att Claims Department [address] [place] [address] [phone] [id number] Mayur Mast Self - patient is the insured 5 MEDICAID [address] [place] [address] [id number] Mayur Mast Self - patient is the insured 5 5 Medications Administered Medication Instructions Date of Administration Dosage Notes Vivitrol 11/24/2023 380 mg Pt sabina well. Umer anufact by Vanna. Vivitrol 12/22/2023 380 mg Mali Mendosa 12/22/2023 01:40 PM CDT >Given Lt Gluteus, tolerated well. Vivitrol 01/21/2024 380 mg Vivitrol 02/18/2024 380 mg Pt. tolerated well. No questions/concerns at this time. Vivitrol 03/17/2024 380 mg Jamie, Judson SANTIAGO 03/17/2024 03:17:08 PM CDT >pt tolerated well with minimal discomfort observed or reported. Vivitrol 05/12/2024 380 mg Alkermes. Pt tolerated well. Reports no adverse s/s. Vivitrol 06/27/2024 380 mg Jamie Isela SANTIAGO 06/27/2024 02:46:28 PM COMMUNICATIONS EDITOR > pt tolerated well. minimal discomfort observed or reported. Vivitrol 08/25/2024 380 mg Pt sabina well. Vivitrol 09/21/2024 380 mg Home Health Registered Nurse:Cydney Reece 09/21/2024 11:04:35 AM CDT >Pt tolerated [...]
--- OUTSIDE RECORDS SUMMARY | 2025-03-11 12:33 | XMS_ITS | Clinical Summary ---
Author Organization [facility] Address [address] [place] [address] Phone Care Team Providers Care Bass String Winder Name Role Phone Chintan Cole MD Primary Care Provider [phone] Allergies No known active allergies Medications * [...] Transaminitis 11/19/2023 11/22/2023 Hyponatremia 11/19/2023 11/22/2023 Encounters Date Type Department Care Team Description 12/19/2024 Travel 12/13/2024 Transcribe Orders [facility] Central Scheduling [address] [place] [phone] Chintan Cole MD Abnormal LFTs (liver function tests) (Primary Dx) from Last 3 Months Family History Medical History Relation Name Comments No Known Problems Father Arthritis Mother Diabetes Mother Hypertension Mother Relation Name Status Comments Father Alive Mother Alive Social History Tobacco Use Types Packs/Day Years Used Date Smoking Tobacco: Every Day Cigarettes 1 35.3 Started: 12/09/1989 Smokeless Tobacco: Former Chew Tobacco Cessation:Ready to Q uit: Not Asked; Counseling Given: Not Answered Alcohol Use Standard Drinks/Week Comments Yes 125 (1 standard drink = 0.6 oz p ure alcohol) last drink 11/29 AM [facility] Utilities Answer Date Recorded In the past 12 months has e [facility], gas, oil, or water [place] threatened to shut off services in your home? Patient declined 11/29/2024 Social Connection and Isolation Panel Answer Date Recorded In a typical week, how many times do you talk on the phone with family, friends, or neighbors? Patient declined 11/29/2024 How often do you get togethe r with friends or relatives? Patient declined 11/29/2024 How often do you attend pentecostalism or orthodoxy serv ices? Patient declined 11/29/2024 Do you belong to any clubs o r organizations such as pentecostalism groups, unions, fraternal or athletic groups, or [...] medical care, and heating? Patient declined 11/29/2024 [facility] - Occupational [...] place to sleep or slept in a fci (including now)? No 11/19/2023 Housing Stability Vital [...] any time in the past 12 m [facility], were you homeless or living in a fci (including now)? Patient declined 11/29/2024 Sexually Active [...] Screening 12/22/2020 Immunochemical Fecal Occult Blood 12/22/2020 Influenza Immunization (#1) 2025 SARS-COV-2 Immunization ( - season) 2025 Respiratory Syncytial Virus (RSV) Immunization (Adult) [...] patient's age to complete this topic Insurance MEDICAID [employer] Advance Directives [...] measures to stabilize the patient. Care Teams Bass String Winder Relationship Specialty Start Date End Date Chintan Cole MD [address] [place] [id number] PCP - General Internal Medicine 11/29/24
--- OUTSIDE RECORDS SUMMARY | 2025-03-11 12:33 | XMS_ITS | Clinical Summary ---
Author Organization [facility] Address [address] [place] [address] Care Team Providers Care Ribbon Hand Name Role Phone No, Physician Primary Care Provider [phone] Allergies No known active allergies Medications [email or web address] [...] patient's age to complete this topic Insurance [facility] Care Teams Ribbon Hand Relationship Specialty Start Date End Date No, Physician PCP - General 04/07/23
--- NOTE | 2025-03-11 12:52 | ED_ITS ---
HPI - Dental/Oral General Chief complaint: Dental/Oral Stated complaint: tooth pain Time Seen by Provider: 03/11/25 12:40 Source: patient and RN notes reviewed Mode of arrival: ambulatory Limitations: no limitations History of Present Illness HPI Narrative: 49-year-old male presents Express Care complaining of right upper dental pain. Patient says symptoms have been going on the last week. Patient said he still as primary care provider yesterday and advised him to go see a dentist. Since then the pain and swelling has gotten worse overnight. Patient denies any difficulty swallowing, breathing, difficulty clearing secretions, fevers, body aches, chills, nausea vomiting, or any other symptoms. Patient has been taking Tylenol for the pain. Related Data Home Medications ?Medication ?Instructions ?Recorded ?Confirmed ?Last Taken ?Type acamprosate 333 mg tablet,delayed mg PO 02/15/2502/20 Unknown History release escitalopram oxalate 20 mg tablet mg 02/15/25 02/20/25 Unknown History flaxseed oil 1,000 mg capsule 1,000 mg PO TID 02/20/25 Unknown History hydroxyzine pamoate 100 mg capsule 100 mg PO QID PRN 0 02/20/25 Unknown History multivit,calcium,min-folic acid tablet PO 02/20/25 Un known History 240 mcg-D3 25 mcg-lycop 300 mcg tablet (One A Day Men Complete) folic acid 1 mg tablet 03/11/25 Unknown History naltrexone 50 mg tablet mg 03/11/25 Unknown History thiamine HCl (vitamin B1) 100 mg mg 03/11/25 Unknown History tablet Allergies Allergy/AdvReac Type Severity Reaction Status Date / Time No Known Allergies Allergy Verified 03/11/25 12:37 Review of Systems Review of Systems: CONSTITUTIONAL: Denies fever, chills, or sweats. EYES: Denies visual changes, redness, or discharge. ENT: Denies rhinorrhea, congestion, sore throat, difficulty clearing secretions, dysphagia, or otalgia. CARDIOVASCULAR: Denies chest pain, palpitations, or edema. MOUTH: Positive for dental pain. RESPIRATORY: Denies cough or dyspnea. GASTROINTESTINAL: Denies abdominal pain, nausea, vomiting, or diarrhea. GENITOURINARY: Denies dysuria or hematuria. SKIN: Denies rash or itching. MUSCULOSKELETAL: Denies back pain, joint pain, or myalgia. NEUROLOGIC: Denies headache, numbness, or weakness. PSYCHIATRIC: Denies anxiety or depression. All other systems reviewed are negative, except as documented in HPI. [facility] Past Medical History Medical History DVT of leg (deep venous thrombosis) Depression with anxiety Alcoholism Psoriasis Crushing injury of foot, left Calf swelling Social History Social History Smoking status: Current every day smoker Alcohol intake: unknown Substance use: current Substance use type: marijuana Occupation/Education: unemployed Gender identity (if verbalized by the patient): Male Comments At the time of my signature, I reviewed and agree with the nursing past medical, surgical, social, and family history. There is no relevant family history pertinent to the patient complaint. Exam Narrative: GENERAL: This is a well-nourished, well-developed adult, in no apparent distress. They are non ill-appearing, nontoxic appearing. HEAD: normocephalic, atraumatic. EYES: Sclera clear/white. Conjunctiva normal. Vision is grossly intact. Extraocular movements intact EARS: External ears normal,Hearing grossly intact. NOSE: External nose normal THROAT: Mucous membranes moist, posterior pharynx clear, without erythema or swelling. Uvula midline. OROPHARYNX: Comes erythematous near the right upper 2nd and 3rd molar. Gross tooth decay present with dental decay. No gingivitis. No suspicious lesions. No pain or swelling under the tongue. Tongue is midline. Right-side of the soft palate erythema edema. NECK: Neck supple, non-tender without lymphadenopathy, masses or thyromegaly. CARDIOVASCULAR: Regular rate and rhythm RESPIRATORY: Respiratory rate normal, respiratory effort nonlabored, no respiratory distress SKIN: warm, Dry, intact with no suspicious lesions or rash, good texture and turgor. NEURO: awake, alert, and oriented to person, place and time. There were no obvious focal neurologic abnormalities. EXTREMITIES: No joint tenderness, effusion, or edema noted. Course Course Emergency Course: Portions of this record may have been created with voice recognition software Level of Care: Express Care Visit Vital Signs Vital signs: Vital Signs Temperature 97.8 F 03/11/25 12:32 Pulse Rate 88 03/11/25 12:32 Respiratory Rate 20 03/11/25 12:32 Blood Pressure 108/73 03/11/25 12:32 Pulse Oximetry 97 03/11/25 12:32 Oxygen Delivery Room Air 03/11/25 12:32 Temperature 97.8 F 03/11/25 12:32 Pulse Rate 88 03/11/25 12:32 Respiratory Rate 20 03/11/25 12:32 Blood Pressure 108/73 03/11/25 12:32 Pulse Oximetry 97 03/11/25 12:32 Oxygen Delivery Room Air 03/11/25 12:32 Reviewed MDM - Dental/Oral MDM Narrative Medical decision making narrative: Patient likely has dental abscess. Will treat with a course of Augmentin advised follow-up with dentist. Will also prescribe viscous lidocaine for pain. Discussed physical exam findings. Advised supportive measures and signs/symptoms to go to the ER. Pt is appropriate for outpt treatment and f/u. Differential Diagnosis Differential diagnosis: Likely gingival abscess, dental caries, dental abscess and fracture of tooth Critical Care Time Critical Care Time Critical Care Time: No Discharge Plan Discharge Clinical Impression: Dental infection Patient Disposition: Home Condition: Stable Instructions: Antibiotic Form, Dental Abscess (ED) Additional Instructions: Take the antibiotics as directed. You may use Tylenol as needed for pain. Follow instructions on the bottle. You may use viscous lidocaine as needed for pain in your mouth. Use a Q-tip and apply directly to the affected area. [place] your teeth and floss at least 2 times a day. You may use mouthwash after each brushing as well. Follow-up with dentist next week. He developed worsening swelling, fevers, difficulty swallowing or breathing, difficulty opening her jaw, swelling under the tongue, or any other concerns please go to the ER immediately. Patient Language: Haitian Prescriptions: New lidocaine HCl [Lidocaine Viscous] 2 % solution 1 applic mucous membrane TID PRN (Reason: pain) Qty: 100 0RF Rx Instructions: Apply to affected tooth/gum. amoxicillin-pot clavulanate 875-125 mg tablet 1 tablet PO Q12H 7 Days Qty: 14 0RF No Action escitalopram oxalate 20 mg tablet acamprosate 333 mg tablet,delayed release (DR/EC) PO naltrexone 50 mg tablet thiamine HCl (vitamin B1) 100 mg tablet folic acid 1 mg tablet hydroxyzine pamoate 100 mg capsule 100 mg PO QID PRN One A Day Men Complete 240-25-300 mcg tablet PO flaxseed oil 1,000 mg capsule 1,000 mg PO TID Rx Instructions: administer with meals Xarelto 15 mg tablet 15 mg PO BID 21 Days Qty: 42 0RF Rx Instructions: must administer with a meal/food Follow-up/Referrals: Chintan Cole MD [Primary Care Provider, Hospitalist] Time of Disposition: 12:46
== END 2025-03-11 12:50 | disposition home or self-care (01) ==
PROVIDERS: PCP Internal Medicine
DX: K04.7 Periapical abscess without sinus (principal); F17.200 Nicotine dependence, unspecified, uncomplicated; F12.90 Cannabis use, unspecified, uncomplicated; L40.9 Psoriasis, unspecified; F41.8 Other specified anxiety disorders; Z86.718 Personal history of other venous thrombosis and embolism
CPT/HCPCS: 99213; G0463

== ENCOUNTER 2025-04-09 14:27 | Emergency (ER) | payer OTHER, SELFPAY ==
--- OUTSIDE RECORDS SUMMARY | 2025-04-09 14:29 | XMS_ITS | Patient Health Record ---
Author Organization Formerly [facility], [facility] Address [address] [place] [address] Care Team Providers Care Hosiery Mater Name Role Phone Douglas Chintan Primary Care Provider [phone] Samuel Rouse Unavailable [phone] [place] Unavailable [phone] Brunilda Clay Unavailable [phone] Sade Bragg Unavailable [phone] Allergies No Known Allergies Results Component Value Reference Range Notes 12 Panel Urine Drug Screen Reviewed date:08/25/2024 02:38:17 PM Interpretation: Performing Lab: Notes/Report: THC POS PHYLLIS NEG MOP (OPI) NEG AMP NEG MET NEG BAR NEG BZO NEG MDMA NEG MTD NEG OXY NEG PCP NEG BUP NEG 12 Panel Urine Drug Screen Reviewed date:09/21/2024 [...] neg OXY neg PCP neg BUP neg CBC With Differential/Platel et* Reviewed date:03/17/2025 01:51:49 PM Interpretation: Performing Lab:[facility] [place], [address] [facility] [place], Phone - [phone], Director - Radames Notes/Report: WBC 8.9 3.4-10.8 x10E3/uL RBC 5.57 [...] x10E3/uL CMP 14 Comprehensive Metabol ic Panel* Reviewed date:03/17/2025 01:51:49 PM Interpretation: Performing Lab:[facility] [place], [address] [facility], Phone - [phone], Director - Raadmes Notes/Report: Glucose TNP Test not performed. Serum [...] 0-40 IU/L ALT (SGPT) 18 0-44 IU/L 12 Panel Urine Drug Screen Reviewed date:10/20/2024 11:36:28 AM Interpretation: Performing Lab: Notes/Report: THC POS PHYLLIS neg MOP (OPI) neg AMP neg MET neg BAR neg BZO neg MDMA neg MTD neg OXY neg PCP neg BUP neg 14 Panel Urine Drug Screen Reviewed date:02/10/2025 01:38:14 PM Interpretation: Performing Lab: Notes/Report: THC POS PHYLLIS neg MOP (OPI) neg AMP neg MET neg BAR neg BZO neg MDMA neg MTD neg OXY neg PCP neg BUP neg TCA neg FTY neg Reason For Referral Reason DUAL DX WITH DEPRESS ION AND AUD, WAS SEEING CARLOS IN THE PAST Diagnosis 1 Depressive disorder (F32.9) Referral Organization [facility] Referring Provider First Name Pili Referring Provider Last Name Nithin pompa Referring Provider Speciality Mental [facility] counseling Referred Provider Specialty Behavioral [facility] Clinical Notes [place] 10/25/2024 03:18:22 PM >LISA called the client to discuss the referral from Dr. Cole. Client stated that he was not interested in starting therapy back up. Referral Priority Routine Reason referral for [facility] services; would also like to switch from Carlos to Nishant for therapists Diagnosis 1 Alcohol use disorder (F10.99) Referral Organization [facility] Referring Provider First Name Brunilda Referring Provider Last Name Obed Referring Provider Speciality Psychiatry Referred Provider Specialty Behavioral [facility] Clinical Notes Rehana Luis 03:13:18 PM [...] days Active Ketoconazole 2 % 1 application Balloon Tester ally Once a day; Duration: 14 days [...] Externally Three times a Week 03/10/2025 Active Amoxicillin 500 MG 1 capsule Orally 3 t imes a day; Duration: 7 days 03/20/2025 Active Social History Tobacco Use: Social History [...] W/U Status Risk Notes Problem Tobacco user (396374193) Nicotine dependence, unspecified, uncomplicated (F17.200) Active confirmed Problem Generalized anxiety disorder (22324871) Generalized anxiety disorder (F41.1) Active confirmed Problem Alcoholic fatty liver (71331975) Alcoholic fatty liver (K70.0) Active confirmed Problem Depressive disorder (94127439) Depressive disorder (F32.9) Active confirmed Problem Alcohol use disorder (8219388821) Alcohol use disorder (F10.99) Active confirmed Vital Signs Heart Rate 64 /min 03/10/2025 Temperature 97.5 degrees Fahrenheit 03/10/2025 Respiratory Rate 16 /min 03/10/2025 Blood pressure diastolic 74 mm Hg 03/10/2025 Oximetry 98 % 03/10/2025 Height 73 inches in 03/10/2025 Blood pressure systolic 118 mm Hg 03/10/2025 Weight 172 lbs lbs 03/10/2025 BMI 22.69 kg/m2 03/10/2025 Encounters Encounter Location Date Provider Diagnosis [address] [place] [address] 05/09/2024 Chintan Cole Alcohol use disorder F10.[address] [address] 05/12/2024 Samuel Sutton Alcohol use disorder F10.99 ; Overweight (BMI 25.0-29.9) E66.3 ; Nutritional counseling Z71.3 and Nicotine dependence, unspecified, uncomplicated F17.[address] [address] 06/27/2024 Sade Szlufik Alcohol use disorder F10.[address] [address] 08/25/2024 Sade Szlufik Alcohol use disorder F10.[address] [address] 09/21/2024 Sade Szlufik Alcohol use disorder F10.99 and Nicotine dependence, unspecified, uncomplicated F17.[address] [address] 10/20/2024 Chintan Cole Alcohol use disorder F10.99 and Depressive disorder F32.9 [facility] [address] [address] 12/02/2024 Brunilda Clay Alcohol use disorder F10.99 and Nicotine dependence, unspecified, uncomplicated F17.[address] [address] 12/13/2024 Chintan Cole Alcohol use disorder F10.99 ; Leg swelling M79.89 ; Abnormal liver enzymes R74.8 and Tinea cruris B35.6 [facility] [address] [facility] [address] 12/26/2024 Chintan Cole Alcohol use disorder F10.99 and Alcoholic fatty liver K70.0 [facility] [address], [place] [address] 01/13/2025 [place] [address] [place] [address] 02/10/2025 Chintan Cole Alcohol use disorder F10.[address] [address] 03/10/2025 Chintan Cole Alcohol use disorder F10.99 ; Alcoholic fatty liver K70.0 ; Deep venous thrombosis (DVT) of left peroneal vein I82.492 ; Generalized anxiety disorder F41.1 and Verruca vulgaris B07.[address] [place] [address] 05/02/2024 [facility] [address] [address] 05/09/2024 Sade Bragg Generalized anxiety disorder F41.[address] [place] [address] 10/03/2024 Chintan Cole Generalized anxiety disorder F41.1 [place] [address] [place] [address] 11/30/2024 [facility] [address] [place] [address] 12/05/2024 Chintan Cole [address] [place] [address] 12/14/2024 Sade Bragg [address] [place] [address] 02/21/2025 Chintan Cole [facility] [address] [place] [address] 03/11/2025 Chintan Cole [facility] [address] [place] [address] 03/14/2025 Chintan Cole [facility] [address] [place] [address] 03/17/2025 Chintan Cole Dental infection K04.7 Assessments Encounter Date Diagnosis (ICD Code) Assessment Notes Treatment Notes Treatment Clinical Notes Section Notes 12/26/2024 Alcohol use disorder (ICD-10 - F10.99) 03/17/2025 Dental infection (ICD-10 - K04.7) 02/10/2025 Alcohol use disorder (ICD-10 - F10.99) [...] or be administered own oral medication per [facility] Protocols. Provided informed consent with understanding of [...] - UDS-++THC, BZO- received Librium while hospitalized 05/09/2024 Alcohol use disorder (ICD-10 - F10.99) 05/09/2024 Generalized anxiety disorder (ICD-10 - F41.1) 05/12/2024 Alcohol use disorder (ICD-10 - F10.99) 05/12/2024 Overweight (BMI 25.0-29.9) (ICD-10 - E66.3) 12/13/2024 Alcohol use disorder (ICD-10 - F10.99) ENCOURAGED AA MEETINGS. HE HAS THE ELICEO TO SCHEDULE VIRTUAL OR IN PERSON. 12/13/2024 Abnormal liver enzymes (ICD-10 - R74.8) 05/12/2024 Nutritional counseling (ICD-10 - Z71.3) 03/10/2025 Deep venous thrombosis (DVT) of left peroneal vein (ICD-10 - I82.492) 03/10/2025 Generalized anxiety disorder (ICD-10 - F41.1) RESUME LEXAPRO. 05/12/2024 Nicotine dependence, unspecified, uncomplicated (ICD-10 - F17.200) 12/13/2024 Tinea cruris (ICD-10 - B35.6) 03/10/2025 Verruca vulgaris (ICD-10 - B07.9) USE [...] self-administe r their own oral medications per [facility] Protocol. May not self-administe r Vivitrol. 03/17/2025 Other Learning About the Safe Use of Antibiotics material was discussed. Pt was educated on use of antibiotic medication including dosing, side effects, adverse effects and anticipated response. Pt was also educated on importance of completing full course of treatment as ordered. Patient voiced understanding of all. Plan Of Treatment Future Test Test Name Order Date Ultrasound - based Elastography of liver (Fibroscan) 03/10/2025 Insurance Providers Payer Name Payer Address Payer Phone Subscriber Number Group Number Insured Name Patient Relationship to Insured Coverage Start Date Coverage End Date [facility] Attn Claims Department [address] [place] [address] [id number] Mayur Mast Self - patient is the insured 5 MEDICAID [address] [place] [address] [id number] Mayur Mast Self - patient is the insured 5 5 Medications Administered Medication Instructions Date of Administration Dosage Notes Vivitrol 11/24/2023 380 mg Pt sabina well. M anufact by [employer]. Vivitrol 12/22/2023 380 mg [...] mg Jamie Isela SANTIAGO 06/27/2024 02:46:28 PM PALS SPECIALIST > pt tolerated well. minimal discomfort observed or reported. Vivitrol 08/25/2024 380 mg Pt sabina well. Vivitrol 09/21/2024 380 mg Hat Brim And Crown Laminating Operator:Cydney Reece 09/21/2024 11:04:35 AM CDT >Pt tolerated [...]
--- OUTSIDE RECORDS SUMMARY | 2025-04-09 14:29 | XMS_ITS | Clinical Summary ---
Author Organization [facility] Address [address] [place] [address] Phone Care Team Providers Care Solar Pv Installer Name Role Phone Chintan Cole MD Primary Care Provider Allergies No known active allergies Medications * [...] with complication 11/19/19 24 11/22/2023 Hyperbilirubinemia 11/19/2023 4 Transaminitis 11/19/2023 11/22/2023 Hyponatremia 11/19/2023 11/22/2023 Family History Medical History Relation Name Comments [...] p ure alcohol) last drink 11/29 AM [facility] [employer] Answer Date Recorded In the past 12 months has [employer], gas, oil, or water [employer] threatened to shut off services in your home? Patient declined 11/29/2024 Social Connection and Isolation Panel Answer Date Recorded In a typical week, how many times do you talk on the phone with family, friends, or neighbors? Patient declined 11/29/2024 How often do you get togethe r with friends or relatives? Patient declined 11/29/2024 How often do you attend restorationism or jain serv ices? Patient declined 11/29/2024 Do you belong to any clubs o r organizations such as restorationism groups, unions, fraternal or athletic groups, or [...] medical care, and heating? Patient declined 11/29/2024 [facility] - Occupational Stress Questionnaire Answer Date Recorded [...] place to sleep or slept in a residential (including now)? No 11/19/2023 Housing Stability Vital [...] any time in the past 12 m onths, were you homeless or living in a residential (including now)? Patient declined 11/29/2024 Sexually Active [...] age to complete this topic Insurance MEDICAID [facility] Advance Directives * Full Code (Latest [...] measures to stabilize the patient. Care Teams Solar Pv Installer Relationship Specialty Start Date End Date Chintan Cole MD [address] [place] [id number] PCP - General Internal Medicine 11/29/24
[2025-04-09 14:30] VITALS: BP 113/80; PULSE 93; RESP 14; TEMP 36.7; O2SAT 98
--- NOTE | 2025-04-09 15:32 | ED.URI ---
HPI - URI/Sore Throat General Chief Complaint: Upper Respiratory Infection Stated Complaint: Nausea/Chest Congestion/Headache Time Seen by Provider: 04/09/25 15:15 Source: patient and RN notes reviewed Mode of arrival: ambulatory Limitations: no limitations History of Present Illness HPI Narrative: 49-year-old male presents Express Care complaining of cough, sore throat, congestion chest congestion, nausea, vomiting for approximately 1 week. Patient says symptoms are not getting better. Patient is any chest pain, difficulty breathing, diarrhea, abdominal pain, fevers, eczema chills cover his symptoms. Patient is not taking [id number] to help with symptoms. Patient denies any significant past medical history. Related Data Home Medications ?Medication ?Instructions ?Recorded ?Confirmed ?Last Taken ?Type escitalopram oxalate 20 mg tablet mg 02/15/25 03/20/25 Unknown History multivit,calcium,min-folic acid tablet PO 02/20/25 03/20/25 Unknown History 240 mcg-D3 25 mcg-lycop 300 mcg tablet (One A Day Men Complete) folic acid 1 mg tablet 03/11/25 03/20/25 Unknown History naltrexone 50 mg tablet mg 03/11/25 03/20/25 Unknown History thiamine HCl (vitamin B1) 100 mg mg 03/11/25 03/20/25 Unknown History tablet rivaroxaban 20 mg tablet (Xarelto) mg 04/09/25 Unknown History Allergies Allergy/AdvReac Type Severity Reaction Status Date / Time No Known Allergies Allergy Verified 04/09/25 14:39 Review of Systems Review of Systems: CONSTITUTIONAL: Denies fever, chills, body aches, or sweats. EYES: Denies visual changes, redness, or discharge. ENT: Positive for congestion, sore throat. Negative for rhinorrhea or otalgia. CARDIOVASCULAR: Denies chest pain, palpitations, or edema. RESPIRATORY: Positive for cough. Negative for dyspnea wheezing. GASTROINTESTINAL: Denies abdominal pain, nausea, vomiting, or diarrhea. GENITOURINARY: Denies dysuria or hematuria. SKIN: Denies rash or itching. MUSCULOSKELETAL: Denies back pain, joint pain, or myalgia. NEUROLOGIC: Denies headache, numbness, or weakness. PSYCHIATRIC: Denies anxiety or depression. All other systems reviewed are negative, except as documented in HPI. [facility] Past Medical History Medical History DVT of leg (deep venous thrombosis) Depression with anxiety Alcoholism Psoriasis Crushing injury of foot, left Calf swelling Social History Social History Smoking status: Current every day smoker Alcohol intake: unknown Substance use: current Substance use type: marijuana Occupation/Education: unemployed Gender identity (if verbalized by the patient): Male Comments At the time of my signature, I reviewed and agree with the nursing past medical, surgical, social, and family history. There is no relevant family history pertinent to the patient complaint. Exam Narrative: GENERAL: This is a well-nourished, well-developed adult, in no apparent distress. They are non ill-appearing, nontoxic appearing. HEAD: normocephalic, atraumatic. EYES: Sclera clear/white. Vision is grossly intact. Conjunctiva normal bilaterally. Extraocular movements intact. EARS: External ears normal, auditory canals clear and without drainage, TMs without erythema or perforation. Hearing grossly intact. NOSE: External nose normal with no obvious nasal discharge, nasal turbinates erythematous, no rhinorrhea. THROAT: Mucous membranes moist, posterior pharynx erythematous, red in patchy with exudate. Uvula is midline. Postnasal drip present. NECK: Neck supple, non-tender without lymphadenopathy, masses or thyromegaly. CARDIOVASCULAR: Regular rate and rhythm without murmurs, gallops, or rubs. RESPIRATORY: Clear to auscultation. Breath sounds equal bilaterally. No wheezes, rales, or rhonchi. SKIN: warm, Dry, intact with no suspicious lesions or rash, good texture and turgor. NEURO: awake, alert, and oriented to person, place and time. There were no obvious focal neurologic abnormalities. EXTREMITIES: No joint tenderness, effusion, or edema noted. BACK: Nontender without deformity. Course Course Emergency Course: Portions of this record may have been created with voice recognition software Level of Care: Express Care Visit Vital Signs Vital signs: Vital Signs Temperature 98.0 F 04/09/25 14:30 Pulse Rate 93 04/09/25 14:30 Respiratory Rate 14 04/09/25 14:30 Blood Pressure 113/80 04/09/25 14:30 Pulse Oximetry 98 04/09/25 14:30 Oxygen Delivery Room Air 10/05/25 14:30 Temperature 98.0 F 04/09/25 14:30 Pulse Rate 93 04/09/25 14:30 Respiratory Rate 14 04/09/25 14:30 Blood Pressure 113/80 04/09/25 14:30 Pulse Oximetry 98 04/09/25 14:30 Oxygen Delivery Room Air 04/09/25 14:30 MDM - URI/Sore Throat MDM Narrative Medical decision making narrative: High suspicion for strep pharyngitis given exam findings, patient may also likely have underlying upper respiratory infection. Will go ahead and treat with cefdinir. Through shared decision making with patient discuss strep testing viral swab in or go ahead and treat based off his exam findings, patient would like to go ahead and start treatment and not perform any swabs. Patient recently been on Augmentin and amoxicillin last month for dental problems. Differential Diagnosis Differential diagnosis: Likely upper respiratory infection, sinusitis, viral infection, bronchitis and pharyngitis Discharge Plan Discharge Clinical Impression: Pharyngitis Qualifiers: Pharyngitis/tonsillitis etiology: unspecified etiology Qualified Code(s): J02.9 - Acute pharyngitis, unspecified Patient Disposition: Home Condition: Stable Instructions: Antibiotic Form, Pharyngitis (ED) Additional Instructions: Please take the cefdinir as prescribed until gone. ?You will be contagious for 24 hours after starting the medication. ?After 24 hours on antibiotics throw tooth brush away and start using a new one. Wash your sheets and cup/water bottle that is used daily. Do not share drinks. Take Tylenol or Ibuprofen for pain or fever, if able. ?Rest and stay hydrated. ?Follow up with your PCP in 3 days if symptoms are not improving. ?Go to the ER immediately if you develop worsening symptoms such as shortness of breath, difficulty swallowing. ? Patient Language: Icelandic Prescriptions: New cefdinir 300 mg capsule 300 mg PO Q12H 10 Days Qty: 20 0RF ondansetron 4 mg tablet,disintegrating 4 mg PO Q8H PRN (Reason: nausea and vomiting) Qty: 12 0RF No Action escitalopram oxalate 20 mg tablet naltrexone 50 mg tablet thiamine HCl (vitamin B1) 100 mg tablet folic acid 1 mg tablet Xarelto 20 mg tablet One A Day Men Complete 240-25-300 mcg tablet PO Follow-up/Referrals: Chintan Cole MD [Primary Care Provider, Hospitalist] Time of Disposition: 15:25
== END 2025-04-09 15:31 | disposition home or self-care (01) ==
PROVIDERS: PCP Internal Medicine
DX: J02.9 Acute pharyngitis, unspecified (principal); F17.200 Nicotine dependence, unspecified, uncomplicated; F41.8 Other specified anxiety disorders; Z86.718 Personal history of other venous thrombosis and embolism; L40.9 Psoriasis, unspecified
CPT/HCPCS: 99213; G0463